=== PATIENT | female | born 1955 | race Caucasian/White ===

== ENCOUNTER → 2019-04-30 13:12 | Outpatient (CLI) | payer OTHER, SELFPAY ==
[2019-04-30 14:32] LABS: Add Manual Diff / Slide Review NO; Basophils Absolute Auto 100 /uL (0-100); Basophils Percent Auto 0.8 % (0-2); Eosinophils Absolute Auto 300 /uL (0-450); Eosinophils Percent Auto 3.7 % (2-4); Hematocrit 41.7 % (36-46); Hemoglobin 14.2 g/dL (12.0-16.0); Lymphocytes Absolute Auto 1500 /uL (1100-4500); Lymphocytes Percent Auto 21.2 % (25-40); Mean Corpuscular Hemoglobin 27.8 PG (26-34); Mean Corpuscular Volume 81.8 fL (80-100); Monocytes Absolute Auto 400 /uL (0-900); Monocytes Percent Auto 4.8 % (3-14); Neutrophils Absolute Auto 5000 /uL (1500-7000); Neutrophils Percent Auto 69.5 % (50-75); Platelet Count 361 X10^3/uL (150-400); Red Cell Distribution Width 13.3 % (11.6-14.8); White Blood Cell Count 7.2 X10^3/uL (4.5-11.0)
[2019-04-30 14:51] LABS: Alanine Aminotransferase 17 IU/L (<35); Albumin 4.1 g/dL (3.5-5.0); Albumin Globulin Ratio 1.2 (1.0-2.8); Alkaline Phosphatase 90 U/L (38-126); Aspartate Aminotransferase 20 IU/L (14-36); Bilirubin Total 0.5 mg/dL (0.2-1.3); Blood Urea Nitrogen 21 mg/dL (7-17); Calcium 9.6 mg/dL (8.4-10.2); Carbon Dioxide 21 mmol/L (22-32); Chloride 105 mmol/L (98-107); Cholesterol 164 mg/dL (140-199); Estimated Glomerular Filt Rate > 60.0 mL/min (>60); Globulin 3.3 g/dL (1.7-4.1); Glucose 279 mg/dL (80-110); HDL Cholesterol 39 mg/dL (40-60); HEMOLYSIS < 15 (0-50); LDL Cholesterol Calculated 97 mg/dL (<100); Potassium 4.3 mmol/L (3.4-5.1); Sodium 137 mmol/L (137-145); Total Protein 7.4 g/dL (6.3-8.2); Triglycerides 139 mg/dL (35-150)
[2019-04-30 15:57] LABS: T4 Total Thyroxine 7.08 ug/dL (5.5-11.0)
[2019-04-30 16:05] LABS: Hemoglobin A1C% w Est Avg Glu 11.1 % (4.0-6.0)
[2019-04-30 16:10] LABS: Thyroid Stimulating Hormone 5.82 uIU/mL (0.47-4.68)
[2019-04-30 19:12] LABS: Appearance Urine UA CLEAR; Bilirubin Urine UA NEGATIVE (NEGATIVE); Color Urine UA YELLOW; Glucose Urine UA 1+ g/dL (Negative); Ketones Urine UA NEGATIVE (NEGATIVE); Leukocyte Esterase Urine UA NEGATIVE (NEGATIVE); Nitrite Urine UA NEGATIVE (Negative); Occult Blood Urine UA NEGATIVE (Negative); Protein Urine UA NEGATIVE (Negative); Specific Gravity Urine UA 1.015 (1.000-1.035); Urobilinogen Urine UA 0.2 E.U./dL (0.2)
[2019-04-30 19:58] LABS: Creatinine Urine Random 95.4 mg/dL
[2019-04-30 20:03] LABS: Microalbumi Creatinin Ratio Ur 10.4 ug/mg CR (<30)
== END ==
PROVIDERS: PCP Nurse Practitioner; Visit Provider Nurse Practitioner
DX: Z13.220 Encounter for screening for lipoid disorders (principal); Z13.29 Encounter for screening for other suspected endocrine disorder; Z13.6 Encounter for screening for cardiovascular disorders; E11.69 Type 2 diabetes mellitus with other specified complication; E66.01 Morbid (severe) obesity due to excess calories; E66.9 Obesity, unspecified; Z68.42 Body mass index [BMI] 45.0-49.9, adult
CPT/HCPCS: 36415; 80053; 80061; 81003; 82043; 82570; 83036; 84436; 84443; 84481; 85025

== ENCOUNTER 2019-05-02 21:33 | Emergency (ER) | payer OTHER, SELFPAY ==
[2019-05-02 21:57] VITALS: BP 126/54; PULSE 92; RESP 16; TEMP 36.8; O2SAT 96; BMI 47.6
--- NOTE | 2019-05-02 23:15 | ED_ITS ---
HPI - Extremity Injury (Lower) General Chief Complaint: Extremity Injury, Lower Stated Complaint: right hip pain Time Seen by Provider: 05/02/19 23:13 Source: patient and family (daughter) Mode of arrival: Family Vehicle Limitations: no limitations History of Present Illness HPI Narrative: This is a 63-year-old female who comes to the emergency department with complaint of right hip pain patient states that she have tweaked it on Saturday but she doesn't recall really hurting it. Didn't really start hurting till today got quite intense improved somewhat now. She did take some Tylenol at home which may have been helpful. Patient states that she has chronic neuropathy in her feet secondary to a significant injury to her right knee and lower extremity, she states she had a fracture because her leg to be b ent at a 90 degree angle, she had tear of all the ligaments in her knee as well as vascular injury. Patient knows little bit of bruising in her foot. The pain is all sort of in the hip joint region and buttock. She states that it does not radiate down the leg. She has not had any new loss of bowel or bladder control. She has not any fevers or chills. She hasn't had any new redness or skin ch anges to the skin. Patient does typically use a cane and a wheelchair intermittently and today has been relying mostly on her wheelchair. Related Data Home Medications Medication Instructions Recorded Confirmed ibuprofen 800 mg PO QDAY #0 11/28/10 04/30/19 amlodipine 5 mg tablet 5 mg PO DAILY tab 02/06/19 04/30/19 glimepiride 4 mg tablet 4 mg PO BID tab 02/06/19 04/30/19 Previous Rx's Medication Instructions Recorded Calcium Carbonate/Vitamin D 1 tab PO BID #180 09/21/10 (#CALCIUM 500 W/VITAMIN D 500 MG-125 IU) EPINEPHRINE (#EPI EZ PEN) 1 mg IM PRN #1 09/21/10 levothyroxine [Synthroid] 50 mcg PO QDAY #90 07/15/12 metformin [Glucophage] 1,000 mg PO BIDCC #180 07/15/12 ondansetron HCl [Zofran] 4 mg PO Q4HP #30 07/22/12 epinephrine 0.3 mg IM SEE INSTRUCTIONS #2 ea 08/04/12 atorvastatin 20 mg tablet 20 mg PO DAILY #90 tab 02/06/19 blood-glucose meter #1 each 04/17/19 one touch glucometer #1 ea 04/17/19 one touch glucose test strips #100 each 04/17/19 one touch lancets #100 each 04/17/19 meloxicam [Mobic] 7.5 mg PO BID PRN #14 tab 05/03/19 Allergies Allergy/AdvReac Type Severity Reaction Status Date / Time Codeine Allergy Unknown NAUSEA Uncoded 04/30/19 14:31 Erythromycin Allergy Unknown NAUSEA Uncoded 04/30/19 14:31 Penicillin Allergy Unknown HIVES/ASPHY Uncoded 04/30/19 14:31 VANIA Tetracycline Allergy Unknown HIVES Uncoded 04/30/19 14:31 Review of Systems Review of Systems ROS Unobtainable: All systems reviewed & are unremarkable except as noted in HPI and below Patient History Medical History Depression (Acute) FH: JOCELIN-BSO (total abdominal hysterectomy and bilateral salpingo-oophorectomy) (Acute) Fibromyalgia (Acute ~1994) Hypertension (Acute) Irritable bowel syndrome (Acute) Rash (Acute ~2017) Right leg paresthesias (Acute) Surgical History History of tonsillectomy (Acute) Family History (Updated 02/12/19 @ 08:50 by Audrey Le CMA) Father No problems noted. Mother No problems noted. Brother No problems noted. Grandfather Lung cancer Grandmother Cancer Social History marital status: pets and animals: Yes education level: other occupational status: employed [employer]: [employer] travel history: other seatbelt use: always water heater temp set < 120 deg: Yes working smoke detector in home: Yes fire extinguisher in home: Yes carbon monox detector in home: Yes firearms in home: No do you feel safe at home: Yes Smoking Status: Never smoker alcohol intake: current substance use type: painkillers during the past year weight has: remained stable well-balanced diet: daily or most days daily servings fruits/ve-1 caffeine: Yes (1-2 drinks per day; rare on soda/pop) eating out: 1-3 times/week Smoking Status: Never smoker Substance Use Type: does not use Exam Narrative Exam Narrative: GENERAL: Alert and oriented x three, obese female in mild distress. Patient is sitting in her wheelchair but was able to stand with some assistance from her daughter and transfer to the bed HEENT: Head normocephalic, atraumatic, EOMI, pupils reactive, face symmetric, moist mucous membranes NECK: Supple, full range of motion CARDIOVASCULAR: Regular rate and rhythm without murmurs, rubs or gallops. RESPIRATORY: Breath sounds equal bilaterally, no wheezes rales or rhonchi. ABDOMEN: Soft, nontender. Normoactive bowel sounds all 4 quadrants. No guarding or rebound, rigidity, no mass : No CVA tenderness BACK: No cervical, thoracic or lumbar vertebral point tenderness. Patient has normal range of motion. Patient's gait is antalgic. EXTREMITIES: Mildly decreased range of motion of the right hip. Patient has mild tenderness over the right SI and hip region. No tenderness in the femur, knee or lower leg. No swelling and right versus left lower extremity. No erythema, no cyanosis or pallor, no clubbing or edema. Neurovascularly intact. 2+ pulses and dorsalis pedis on the right. No rash or skin changes, patient does have incisions consistent with multiple past orthopedic surgeries on her right lower extremity NEUROLOGICAL: Cranial nerves II through XII grossly intact. Moving all extremities SKIN: Warm, dry, no petechiae, no rashes or lesions. Initial Vital Signs Initial Vital Signs: Vital Signs Temperature 98.3 F 05/02/19 21:57 Pulse Rate 92 H 05/02/19 21:57 Respiratory Rate 16 05/02/19 21:57 Blood Pressure 126/54 L 05/02/19 21:57 Pulse Oximetry 96 05/02/19 21:57 Course Orders Ordered: ED Orders 05/02/19 23:37 XR hip w pel if done RT 2V Stat Discontinued Medications Ketorolac Tromethamine (Toradol) 30 mg IM NOW ONE Stop: 05/02/19 23:38 Last Admin: 05/02/19 23:52 Dose: 30 mg Documented by: PREEIT Vital Signs Vital signs: Vital Signs - 8 hr 05/03/19 02:07 Pulse Rate 95 H Respiratory Rate 15 Blood Pressure 105/57 L Pulse Oximetry 98 MDM - Extremity Injury (Lower) Imaging Data right hip xray: My impression: nap, no fx, normal alignment. MDM Narrative Medical decision making narrative: Patient is feeling more comfortable after Toradol. Discussed x-ray findings. Plan for DC home with follow-up with primary care or orthopedic surgery if she prefers. Patient is comfortable with plan. Able to get around with some assistance from daughter but feels safe to return home. Discharge Plan Departure Patient Disposition: Home Clinical Impression: Hip pain, right Discharge Date/Time: 05/03/19 02:08 Instructions: DI for Hip Pain Activity Restrictions/Additional Instructions: Follow up this week with your physician for recheck and further evaluation as needed. Included is also an orthopedic referral if you would prefer. Take medication as prescribed, you may take this medication every 12 hours. You may take Tylenol with this medication. Do not take NSAIDs, ibuprofen, naproxen or Aleve with this medication. Return to the ER for fevers greater 100.4 F, weakness, new numbness, loss of sensation, loss of bowel or bladder control, rapidly worsening pain, redness or swelling of the hip lower extremity, pallor or cyanosis or other new or concerning symptoms. Prescriptions: New meloxicam [Mobic] 7.5 mg tablet 7.5 mg PO BID PRN (Reason: pain) Qty: 14 RF: 0 No Action Calcium Carbonate/Vitamin D (#CALCIUM 500 W/VITAMIN D 500 MG-125 IU) 1 tab PO BID Qty: 180 RF: 3 EPINEPHRINE (#EPI EZ PEN) 1 mg IM PRN Qty: 1 RF: 3 ibuprofen 800 MG tablet 800 mg PO QDAY Qty: 0 RF: 0 levothyroxine [Synthroid] 50 MCG tablet 50 mcg PO QDAY Qty: 90 RF: 3 metformin [Glucophage] 1,000 MG tablet 1,000 mg PO BIDCC Qty: 180 RF: 3 ondansetron HCl [Zofran] 4 MG tablet 4 mg PO Q4HP Qty: 30 RF: 0 epinephrine 0.3 MG/0.3 ML auto-injector 0.3 mg IM SEE INSTRUCTIONS Qty: 2 RF: 0 (DME) blood-glucose meter Kit See Rx Instructions .ROUTE .MEDSUPPLY Qty: 1 RF: 0 (DME) one touch glucometer Qty: 1 RF: 0 (DME) one touch glucose test strips Qty: 100 RF: 0 (DME) one touch lancets Qty: 100 RF: 0 amlodipine 5 mg tablet 5 mg PO DAILY RF: 0 glimepiride 4 mg tablet 4 mg PO BID RF: 0 atorvastatin 20 mg tablet 20 mg PO DAILY Qty: 90 RF: 3 Referrals: Emperatriz Mandel ARNP [Primary Care Provider] - Enmanuel Cantrell MD [Physician] -
--- NOTE | 2019-05-02 23:37 | DI.RAD.S_ITS ---
PROCEDURE: XR HIP W PEL IF DONE RT 2V INDICATIONS: right hip pain TECHNIQUE: AP pelvis with lateral view of the right hip. COMPARISON: None. FINDINGS: Bones: No displaced fractures or dislocations. There is mild axial joint space narrowing in the hips bilaterally. Mild subchondral sclerosis demonstrated along the superior acetabular rim. Pelvic ring appears intact. No suspicious bony lesions. Soft tissues: The visualized bowel gas pattern is normal. No suspicious soft tissue calcifications. IMPRESSION: 1. Mild degenerative changes in the hips. 2. No displaced fracture or dislocation. Dictated by: Sathish Jesus M.D. on 05/03/2019 at 8:40 Approved by: Sathish Jesus M.D. on 05/03/2019 at 8:41
[2019-05-02] MEDS: KETOROLAC 60 MG/2 ML VIAL 30 MG IM (23:52)
[2019-05-03 02:07] VITALS: BP 105/57; PULSE 95; RESP 15; O2SAT 98
== END 2019-05-03 02:08 | disposition home or self-care (01) ==
PROVIDERS: Emergency Provider Emergency Medicine; PCP Nurse Practitioner
DX: M25.551 Pain in right hip (principal)
CPT/HCPCS: 73502; 96372; 99283; J1885

== ENCOUNTER 2019-06-14 17:49 | Emergency (ER) | payer OTHER, SELFPAY ==
[2019-06-14 18:08] VITALS: BP 137/89; PULSE 108; RESP 20; TEMP 36.7; O2SAT 94
--- NOTE | 2019-06-14 18:47 | ED_ITS ---
HPI - Dental/Oral <Alexandra Rayo, [employer] - Last Filed: 06/14/19 20:17> General Chief complaint: Dental/Oral Stated complaint: facial/oral swelling after tooth extraction Time Seen by Provider: 06/14/19 18:24 Source: patient and family Mode of arrival: Ambulatory Limitations: no limitations History of Present Illness HPI Narrative: The patient is a 63-year-old female nonsmoker with history of morbid obesity, diabetes, hypertension of pain and swelling after a dental procedure. She states that she had pain and swelling around her right lower front tooth for several days, then she had her to teeth removed on Saturday. She was started on Keflex 500 mg 4 times a day. She presents with persistent pain and swelling. She denies any fevers nausea vomiting or diarrhea. She denies any systemic symptoms she states that she was given Keflex because she is ?allergic to absolutely everything else. She states that she is allergic to tetracyclines, penicillin, erythromycin and codeine. She is taking 500 mg of Keflex twice a day Related Data Home Medications Medication Instructions Recorded Confirmed ibuprofen 800 mg PO QDAY #0 11/28/10 04/30/19 amlodipine 5 mg tablet 5 mg PO DAILY tab 02/06/19 04/30/19 glimepiride 4 mg tablet 4 mg PO BID tab 02/06/19 04/30/19 Previous Rx's Medication Instructions Recorded Calcium Carbonate/Vitamin D 1 tab PO BID #180 09/21/10 (#CALCIUM 500 W/VITAMIN D 500 MG-125 IU) EPINEPHRINE (#EPI EZ PEN) 1 mg IM PRN #1 09/21/10 levothyroxine [Synthroid] 50 mcg PO QDAY #90 07/15/12 metformin [Glucophage] 1,000 mg PO BIDCC #180 07/15/12 ondansetron HCl [Zofran] 4 mg PO Q4HP #30 07/22/12 epinephrine 0.3 mg IM SEE INSTRUCTIONS #2 ea 08/04/12 atorvastatin 20 mg tablet 20 mg PO DAILY #90 tab 02/06/19 blood-glucose meter #1 each 04/17/19 one touch glucometer #1 ea 04/17/19 one touch glucose test strips #100 each 04/17/19 one touch lancets #100 each 04/17/19 meloxicam [Mobic] 7.5 mg PO BID PRN #14 tab 05/03/19 cephalexin 500 mg PO QID 7 Days #28 cap 06/14/19 Allergies Allergy/AdvReac Type Severity Reaction Status Date / Time Codeine Allergy Unknown NAUSEA Uncoded 04/30/19 14:31 Erythromycin Allergy Unknown NAUSEA Uncoded 04/30/19 14:31 Penicillin Allergy Unknown HIVES/ASPHY Uncoded 04/30/19 14:31 VANIA Tetracycline Allergy Unknown HIVES Uncoded 04/30/19 14:31 Review of Systems <DEN Evans - Last Filed: 06/14/19 20:17> Review of Systems Narrative: GENERAL: Denies chills, fatigue, malaise, fever, sweats. HEENT: See HPI RESPIRATORY: Denies dyspnea, cough, wheezing, hemoptysis, sputum. CARDIOVASCULAR: Denies chest pain, palpitations, orthopnea, edema, GASTROINTESTINAL: Denies nausea, vomiting, abdominal pain, diarrhea, constipatio n, melena. : Denies dysuria, frequency, incontinence, hematuria, urinary retention. MUSCULOSKELETAL: denies weakness, joint pain, or bony pain SKIN: Denies rash, skin lesions, or other NEUROLOGIC: Denies weakness, headache, numbness, change in speech, confusion, seizures, incoordination. PSYCHIATRIC: No concerning psychosocial issues. 12 point review of systems is negative except for those stated above Patient History <DEN Evans - Last Filed: 06/14/19 20:17> Medical History Depression (Acute) FH: JOCELIN-BSO (total abdominal hysterectomy and bilateral salpingo-oophorectomy) (Acute) Fibromyalgia (Acute ~1994) Hypertension (Acute) Irritable bowel syndrome (Acute) Rash (Acute ~2017) Right leg paresthesias (Acute) Surgical History History of tonsillectomy (Acute) Family History Father No problems noted. Mother No problems noted. Brother No problems noted. Grandfather Lung cancer Grandmother Cancer Social History marital status: pets and animals: Yes education level: other occupational status: employed [employer]: [employer] travel history: other seatbelt use: always water heater temp set < 120 deg: Yes working smoke detector in home: Yes fire extinguisher in home: Yes carbon monox detector in home: Yes firearms in home: No do you feel safe at home: Yes Smoking Status: Never smoker alcohol intake: current substance use type: painkillers during the past year weight has: remained stable well-balanced diet: daily or most days daily servings fruits/ve-1 caffeine: Yes (1-2 drinks per day; rare on soda/pop) eating out: 1-3 times/week Smoking Status: Never smoker alcohol intake frequency: holidays/special occasions only Substance Use Type: does not use Exam <DEN Evans - Last Filed: 06/14/19 20:17> Narrative Exam Narrative: GENERAL: This is a well-nourished, well-developed patient, in no acute distress HEAD: Atraumatic. Normocephalic. No temporal or scalp tenderness. EYES: Pupils equal round and reactive. Extraocular motions intact. No scleral icterus. No injection or drainage. ENT: Nose without bleeding, purulent drainage or septal hematoma. Throat without erythema, tonsillar hypertrophy or exudate. Uvula midline. Airway patent. Poor dentition noted, with tooth extraction sites right lower NECK: Trachea midline. No JVD or lymphadenopathy. Supple, nontender, no meningeal signs. CARDIOVASCULAR: Regular rate and rhythm RESPIRATORY: No cough. No increased respiratory effort. No accessory muscle use. EXTREMITIES: No clubbing, cyanosis, or edema. No joint tenderness, effusion, or edema noted. BACK: Nontender without deformity or crepitance. No flank tenderness. NEURO: AOx3. SKIN: Slight following on cheek noted exterior to do the extraction site, no erythema or warmth. Slight swelling is noted distal to right-sided jaw Initial Vital Signs Initial Vital Signs: Vital Signs Temperature 98.1 F 06/14/19 18:08 Pulse Rate 108 H 06/14/19 18:08 Respiratory Rate 20 06/14/19 18:08 Blood Pressure 137/89 06/14/19 18:08 Pulse Oximetry 94 06/14/19 18:08 <Magdy Mott DO - Last Filed: 06/14/19 20:18> Initial Vital Signs Initial Vital Signs: Vital Signs Temperature 98.1 F 06/14/19 18:08 Pulse Rate 108 H 06/14/19 18:08 Respiratory Rate 20 06/14/19 18:08 Blood Pressure 137/89 06/14/19 18:08 Pulse Oximetry 94 06/14/19 18:08 Course <DEN Evans - Last Filed: 06/14/19 20:17> Vital Signs Vital signs: Vital Signs - 8 hr 06/14/19 18:08 Temperature 98.1 F Pulse Rate 108 H Respiratory Rate 20 Blood Pressure 137/89 Pulse Oximetry 94 <Magdy Mott DO - Last Filed: 06/14/19 20:18> Vital Signs Vital signs: Vital Signs - 8 hr 06/14/19 18:08 Temperature 98.1 F Pulse Rate 108 H Respiratory Rate 20 Blood Pressure 137/89 Pulse Oximetry 94 MDM - Dental/Oral <DEN Evans - Last Filed: 06/14/19 20:17> MDM Narrative Medical decision making narrative: The patient is a 63-year-old female who presents with a chief complaint of swelling after tooth extraction. It is likely some of the swelling that she notes is normal due to her recent procedure, the effects of gravity on swelling. She has no signs of systemic illness, is afebrile in the emergency department. This she does have a history of C diff, so she would like to avoid clindamycin. I discussed increasing her Keflex dosing which she is okay with. I discussed at length use of ice, which she states she has not been doing much off. Encouraged follow-up with primary care provider as well as her dentist. Patient has no questions or concerns upon discharge and states understanding of return precautions as well as follow-up care Discharge Plan Departure Patient Disposition: Home Clinical Impression: Dental infection Discharge Date/Time: 06/14/19 19:42 Instructions: Tooth Abscess, DI for Dental Pain Activity Restrictions/Additional Instructions: As discussed we elected to increase your cephalexin dosing rather than trying another antibiotic in order to avoid risk of c diff Please follow-up with primary care provider as well as your dental provider Please continue to monitor for fevers vomiting etcetera and come back to the emergency department for any acute concerns Please take the antibiotic with probiotic Prescriptions: New cephalexin 500 mg capsule 500 mg PO QID 7 Days Qty: 28 RF: 0 No Action Calcium Carbonate/Vitamin D (#CALCIUM 500 W/VITAMIN D 500 MG-125 IU) 1 tab PO BID Qty: 180 RF: 3 EPINEPHRINE (#EPI EZ PEN) 1 mg IM PRN Qty: 1 RF: 3 ibuprofen 800 MG tablet 800 mg PO QDAY Qty: 0 RF: 0 levothyroxine [Synthroid] 50 MCG tablet 50 mcg PO QDAY Qty: 90 RF: 3 metformin [Glucophage] 1,000 MG tablet 1,000 mg PO BIDCC Qty: 180 RF: 3 ondansetron HCl [Zofran] 4 MG tablet 4 mg PO Q4HP Qty: 30 RF: 0 epinephrine 0.3 MG/0.3 ML auto-injector 0.3 mg IM SEE INSTRUCTIONS Qty: 2 RF: 0 (DME) blood-glucose meter Kit See Rx Instructions .ROUTE .MEDSUPPLY Qty: 1 RF: 0 (DME) one touch glucometer Qty: 1 RF: 0 (DME) one touch glucose test strips Qty: 100 RF: 0 (DME) one touch lancets Qty: 100 RF: 0 amlodipine 5 mg tablet 5 mg PO DAILY RF: 0 glimepiride 4 mg tablet 4 mg PO BID RF: 0 atorvastatin 20 mg tablet 20 mg PO DAILY Qty: 90 RF: 3 meloxicam [Mobic] 7.5 mg tablet 7.5 mg PO BID PRN (Reason: pain) Qty: 14 RF: 0 Referrals: Emperatriz Mandel ARNP [Primary Care Provider] - <Magdy Mott DO - Last Filed: 06/14/19 20:18> Sign Out Provider Sign Out Attestation: Dr Mott Co-Sign Statement: I was available for consultation during this patient's emergency department visit. This chart is signed by myself for administrative purposes only. I did not have direct contact with this patient during this visit. They were seen independently by the APC.
== END 2019-06-14 19:42 | disposition home or self-care (01) ==
PROVIDERS: Emergency Provider Nurse Practitioner Family; PCP Nurse Practitioner
DX: K04.7 Periapical abscess without sinus (principal)
CPT/HCPCS: 99281; 99283

== ENCOUNTER → 2019-12-17 12:55 | Outpatient (CLI) | payer OTHER, SELFPAY ==
[2019-12-17 13:51] LABS: Alanine Aminotransferase 21 IU/L (<35); Albumin 3.9 g/dL (3.5-5.0); Albumin Globulin Ratio 1.2 (1.0-2.8); Alkaline Phosphatase 113 U/L (38-126); Aspartate Aminotransferase 23 IU/L (14-36); BUN Creatinine Ratio 21.7 (6-22); Bilirubin Total 0.6 mg/dL (0.2-1.3); Blood Urea Nitrogen 15 mg/dL (7-17); Calcium 9.4 mg/dL (8.4-10.2); Carbon Dioxide 23 mmol/L (22-32); Chloride 100 mmol/L (98-107); Estimated Glomerular Filt Rate > 60.0 mL/min (>60); Globulin 3.3 g/dL (1.7-4.1); Glucose 310 mg/dL (80-110); HEMOLYSIS < 15 (0-50); Potassium 4.1 mmol/L (3.4-5.1); Sodium 135 mmol/L (137-145); Total Protein 7.2 g/dL (6.3-8.2)
[2019-12-17 14:09] LABS: Free T4, Direct Thyroxine 0.87 ng/dL (0.78-2.19)
[2019-12-17 14:24] LABS: Thyroid Stimulating Hormone 6.56 uIU/mL (0.47-4.68)
[2019-12-18 15:26] LABS: Cholesterol 160 mg/dL (140-199); HDL Cholesterol 40 mg/dL (40-60); LDL Cholesterol Calculated 87 mg/dL (<100); Triglycerides 165 mg/dL (35-150)
== END ==
PROVIDERS: PCP Nurse Practitioner; Referring Provider Nurse Practitioner; Visit Provider Nurse Practitioner
DX: E03.9 Hypothyroidism, unspecified (principal); E11.69 Type 2 diabetes mellitus with other specified complication; E66.01 Morbid (severe) obesity due to excess calories; E66.9 Obesity, unspecified; E78.5 Hyperlipidemia, unspecified; F32.9 Major depressive disorder, single episode, unspecified; G47.00 Insomnia, unspecified; I10 Essential (primary) hypertension; M17.10 Unilateral primary osteoarthritis, unspecified knee; Z68.42 Body mass index [BMI] 45.0-49.9, adult
CPT/HCPCS: 36415; 80053; 80061; 84439; 84443

== ENCOUNTER → 2019-12-18 16:49 | Outpatient (CLI) | payer OTHER, SELFPAY | PROVIDERS: PCP Nurse Practitioner; Referring Provider Nurse Practitioner; Visit Provider Nurse Practitioner | DX: E11.69 Type 2 diabetes mellitus with other specified complication (principal); E66.01 Morbid (severe) obesity due to excess calories; E66.9 Obesity, unspecified; Z68.42 Body mass index [BMI] 45.0-49.9, adult | CPT/HCPCS: 36415; 83036 ==

== ENCOUNTER → 2019-12-21 13:24 | Outpatient (CLI) | payer OTHER, SELFPAY ==
[2019-12-21 16:04] LABS: Creatinine Urine Random 79.7 mg/dL
[2019-12-21 16:07] LABS: Microalbumin Urine Random 0.8 mg/dL (0-1.6)
== END ==
PROVIDERS: PCP Nurse Practitioner; Referring Provider Nurse Practitioner; Visit Provider Nurse Practitioner
DX: E03.9 Hypothyroidism, unspecified (principal); E11.69 Type 2 diabetes mellitus with other specified complication; E66.01 Morbid (severe) obesity due to excess calories; E66.9 Obesity, unspecified; E78.5 Hyperlipidemia, unspecified; F32.9 Major depressive disorder, single episode, unspecified; G47.00 Insomnia, unspecified; I10 Essential (primary) hypertension; M17.10 Unilateral primary osteoarthritis, unspecified knee; Z68.42 Body mass index [BMI] 45.0-49.9, adult
CPT/HCPCS: 82043; 82570

== ENCOUNTER 2020-03-09 17:16 | Emergency (ER) | payer OTHER, SELFPAY ==
[2020-03-09 17:24] VITALS: BP 179/88; PULSE 91; RESP 13; TEMP 36.3; O2SAT 97; BMI 48.5
--- NOTE | 2020-03-09 17:25 | DI.RAD.S_ITS ---
PROCEDURE: XR HIP W PEL IF DONE RT 2V INDICATIONS: pain after fall TECHNIQUE: AP pelvis with lateral view(s) of the right hip(s). COMPARISON: [facility], , XR HIP W PEL IF DONE RT 2V, 05/03/2019, 1:02. FINDINGS: Bones: No fractures or dislocations. Pelvic ring appears intact. No suspicious bony lesions. Mild bilateral hip degenerative change. Soft tissues: The visualized bowel gas pattern is normal. No suspicious soft tissue calcifications. IMPRESSION: Mild bilateral hip degenerative change. No evidence acute bony abnormality of the pelvis and right hip. If clinical suspicion and/or symptoms persist, further assessment with repeat plain films, or advanced imaging (e.g., CT, MRI, or bone scan) may be helpful for further assessment. Dictated by: Peng Kohli M.D. on 03/09/2020 at 18:02 Approved by: Peng Kohli M.D. on 03/09/2020 at 18:04
--- NOTE | 2020-03-09 17:57 | ED_ITS ---
HPI - Extremity Problem General Chief complaint: Extremity Problem,Nontraumatic Stated complaint: Right Hip Gave Out Saturday, Getting Worse Time Seen by Provider: 03/09/20 17:23 Source: patient Mode of arrival: Wheelchair Limitations: no limitations History of Present Illness HPI Narrative: 64-year-old female here for evaluation of right hip pain. She states that on Saturday her right hip gave out on her. She does have chronic neurologic and muscular issues in her right lower extremity after a injury several years ago. She spends quite a bit of time in a motorized wheelchair. She also sits most of the day for her job. She can walk somewhat but does wear an ankle brace. Has been taking Advil at home. Related Data Home Medications Medication Instructions Recorded Confirmed ibuprofen 800 mg PO QDAY #0 11/28/10 04/30/19 Previous Rx's Medication Instructions Recorded EPINEPHRINE (#EPI EZ PEN) 1 mg IM PRN #1 09/21/10 blood-glucose meter #1 each 04/17/19 Contour Meter #1 ea 11/25/19 epinephrine 0.3 mg/0.3 mL 0.3 mg IM SEE INSTRUCTIONS #2 ea 12/25/19 injection, auto-injector amlodipine 5 mg tablet 5 mg PO DAILY #90 tab 01/07/20 atorvastatin 20 mg tablet 20 mg PO DAILY #90 tab 01/07/20 glimepiride 4 mg tablet 4 mg PO BID #180 tab 01/07/20 metformin 1,000 mg tablet 1,000 mg PO BIDCC #180 tab 01/07/20 pen needle, diabetic 31 gauge x #90 each 01/19/20/ insulin glargine 100 unit/mL (3 30 unit SUBCUT DAILY #15 ml 01/26/20 mL) subcutaneous pen Contour glucose test strips #200 each 02/10/20 Contour lancets #200 each 02/10/20 tramadol [Ultram] 50 mg PO Q4H PRN #7 tab 03/09/20 Allergies Allergy/AdvReac Type Severity Reaction Status Date / Time codeine Allergy Verified 03/09/20 17:44 erythromycin base Allergy Verified 03/09/20 17:44 nitrofurantoin Allergy Verified 03/09/20 17:44 Penicillins Allergy Verified 03/09/20 17:44 Tetracyclines Allergy Verified 03/09/20 17:44 Review of Systems Constitutional Constitutional: Denies fever(s) Musculoskeletal Comments: Right hip pain Integumentary/Breasts Skin/Breast: Denies rash Neurologic Neurologic: Denies behavioral changes Psychiatric Psychiatric: Denies behavioral changes Hematologic/Lymphatic Hematologic/Lymphatic: Denies easy bleeding and Denies easy bruising Patient History Medical History Adjustment disorder with depressed mood (Acute) Breast cancer screening (Acute) Chronic pain (Acute) Colon cancer screening (Acute) Depression (Acute) Dysphagia (Acute) FH: JOCELIN-BSO (total abdominal hysterectomy and bilateral salpingo-oophorectomy) (Acute) Fibromyalgia (Acute ~1994) Fibrositis (Acute) Foot drop (Acute) GERD (gastroesophageal reflux disease) (Acute) Hypertension (Acute) Hypothyroidism (Acute) Impaired mobility (Acute) Insomnia (Acute) Irritable bowel syndrome (Acute) Osteoarthritis of knee (Acute) Rash (Acute ~2017) Right leg paresthesias (Acute) Skin cancer screening (Acute) Vitamin D deficiency (Acute) Surgical History History of tonsillectomy (Acute) Family History Father No problems noted. Mother No problems noted. Brother No problems noted. Grandfather Lung cancer Grandmother Cancer Social History marital status: pets and animals: Yes education level: other occupational status: employed [employer]: [employer] travel history: other seatbelt use: always water heater temp set < 120 deg: Yes working smoke detector in home: Yes fire extinguisher in home: Yes carbon monox detector in home: Yes firearms in home: No do you feel safe at home: Yes Smoking Status: Never smoker alcohol intake: current substance use type: painkillers during the past year weight has: remained stable well-balanced diet: daily or most days daily servings fruits/ve-1 caffeine: Yes (1-2 drinks per day; rare on soda/pop) eating out: 1-3 times/week Smoking Status: Never smoker alcohol intake frequency: holidays/special occasions only Substance Use Type: does not use Exam Initial Vital Signs Initial Vital Signs: Vital Signs Temperature 97.4 F L 03/09/20 17:24 Pulse Rate 91 H 03/09/20 17:24 Respiratory Rate 13 03/09/20 17:24 Blood Pressure 179/88 H 03/09/20 17:24 Pulse Oximetry 97 03/09/20 17:24 Const General: cooperative and healthy appearing Skin Lesions: no lesions Rashes: no rashes Neuro General: patient alert, patient awake and patient oriented x3 Extrem Other: Note tenderness to palpation with internal and external rotation of the right hip does have tenderness palpation over the greater trochanter. Patient has chronic deformities to the right lower extremity below the knee. Psych Appearance: grossly normal and well kempt Course Orders Ordered: ED Orders 03/09/20 17:25 XR hip w pel if done RT 2V Stat Vital Signs Vital signs: Vital Signs - 8 hr 03/09/20 17:24 Temperature 97.4 F L Pulse Rate 91 H Respiratory Rate 13 Blood Pressure 179/88 H Pulse Oximetry 97 MDM - Extremity (Nontraumatic) Imaging Data Extremity x-ray #1: Radiologist's Impression: [address] [address] XRay Report Signed Patient: Heaven Keane [facility]#: [id number] : [id number]:[id number] Age/Sex: 64 / FDate of Service: 03/09/20 Loc: ED Accession Number: [id number] Procedure: XR hip w pel if done RT 2V Ordering Provider: Magdy Mott D.O. PROCEDURE: XR HIP W PEL IF DONE RT 2V INDICATIONS: pain after fall TECHNIQUE: AP pelvis with lateral view(s) of the right hip(s). COMPARISON: [facility] , XR HIP W PEL IF DONE RT 2V, 05/03/2019, 1:02. FINDINGS: Bones: No fractures or dislocations. Pelvic ring appears intact. No suspicious bony lesions. Mild bilateral hip degenerative change. Soft tissues: The visualized bowel gas pattern is normal. No suspicious soft tissue calcifications. IMPRESSION: Mild bilateral hip degenerative change. No evidence acute bony abnormality of the pelvis and right hip. If clinical suspicion and/or symptoms persist, further assessment with repeat plain films, or advanced imaging (e.g., CT, MRI, or bone scan) may be helpful for further assessment. Dictated by: Peng Kohli M.D. on 03/09/2020 at 18:02 Approved by: Peng Kohli M.D. on 03/09/2020 at 18:04 [facility] Narrative Medical decision making narrative: No fractures on the x-rays. She does have chronic neurologic issues to her right lower extremity. No indication for further x-rays. Suspect muscular issues. She is currently taking Advil. Cristian kinsey follow-up with her primary provider. Discharge Plan Departure Patient Disposition: Home Clinical Impression: Hip pain, right, Arthritis Instructions: DI for Arthritis Activity Restrictions/Additional Instructions: Recommend that you continue with the light stretching and heat and light stre tching. You can continue with the anti-inflammatories like we discussed. Contact your primary provider for follow-up. Return to the emergency department for any new or worsening symptoms Prescriptions: New tramadol [Ultram] 50 mg tablet 50 mg PO Q4H PRN (Reason: pain) Qty: 7 RF: 0 No Action EPINEPHRINE (#EPI EZ PEN) 1 mg IM PRN Qty: 1 RF: 3 ibuprofen 800 MG tablet 800 mg PO QDAY Qty: 0 RF: 0 (DME) blood-glucose meter Kit See Rx Instructions .ROUTE .MEDSUPPLY Qty: 1 RF: 0 (DME) Contour Meter Qty: 1 RF: 0 epinephrine 0.3 mg/0.3 mL auto-injector 0.3 mg IM SEE INSTRUCTIONS Qty: 2 RF: 0 amlodipine 5 mg tablet 5 mg PO DAILY Qty: 90 RF: 1 atorvastatin 20 mg tablet 20 mg PO DAILY Qty: 90 RF: 1 glimepiride 4 mg tablet 4 mg PO BID Qty: 180 RF: 1 metformin [Glucophage] 1,000 mg tablet 1,000 mg PO BIDCC Qty: 180 RF: 1 (DME) pen needle, diabetic [Lite Touch Insulin Pen Randolph] 31 gauge x 3/16 needle See Rx Instructions .ROUTE .MEDSUPPLY Qty: 90 RF: 3 insulin glargine 100 unit/mL (3 mL) insulin pen 30 unit SUBCUT DAILY Qty: 15 RF: 2 (DME) Contour glucose test strips Qty: 200 RF: 3 (DME) Contour lancets Qty: 200 RF: 3 Referrals: Emperatriz Mandel ARNP [Primary Care Provider] - Stand Alone Forms: Work Release Note
== END 2020-03-09 18:48 | disposition home or self-care (01) ==
PROVIDERS: Emergency Provider Emergency Medicine; PCP Nurse Practitioner
DX: M25.551 Pain in right hip (principal); W19.XXXA Unspecified fall, initial encounter; M19.90 Unspecified osteoarthritis, unspecified site
CPT/HCPCS: 73502; 99283

== ENCOUNTER → 2020-03-17 15:29 | Outpatient (CLI) | payer OTHER, SELFPAY ==
[2020-03-17 16:22] LABS: Hemoglobin A1C% w Est Avg Glu 8.4 % (4.0-6.0)
== END ==
PROVIDERS: PCP Nurse Practitioner; Referring Provider Family Medicine; Visit Provider Family Medicine
DX: E11.69 Type 2 diabetes mellitus with other specified complication (principal); E66.01 Morbid (severe) obesity due to excess calories; E66.9 Obesity, unspecified; Z68.42 Body mass index [BMI] 45.0-49.9, adult
CPT/HCPCS: 36415; 83036

== ENCOUNTER 2020-06-16 13:23 | Emergency (ER) | payer OTHER, SELFPAY ==
[2020-06-16 13:25] VITALS: BP 147/63; PULSE 81; RESP 20; TEMP 36.6; O2SAT 98; BMI 47.7
--- NOTE | 2020-06-16 14:31 | DI.RAD.S_ITS ---
PROCEDURE: XR ANKLE RT MIN 3V INDICATIONS: ankle pain/fall TECHNIQUE: 3 views of the ankle were acquired. COMPARISON: [facility], FOOT 3V RIGHT, 09/02/2010, 15:10. FINDINGS: Bones: No fractures or dislocations. Ankle mortise is normally aligned. No suspicious bony lesions. Small calcaneal enthesophytes. Bones appear osteopenic. Soft tissues: No tibiotalar joint effusion. Achilles tendon appears normal. Swelling at the lateral malleolus and midfoot. IMPRESSION: No discrete fracture is identified. Swelling at the lateral malleolus and midfoot. If clinically indicated consider follow-up radiographs in 10-14 days. Dictated by: José Miguel Lozano M.D. on 06/16/2020 at 14:55 Approved by: José Miguel Lozano M.D. on 06/16/2020 at 14:59
--- NOTE | 2020-06-16 14:39 | ED.FALL ---
HPI - Fall <Rossi Velez PA-C - Last Filed: 06/16/20 16:53> General Chief Complaint: Fall Stated Complaint: GLF, right ankle pain Time Seen by Provider: 06/16/20 14:07 Source: patient and EMS Mode of arrival: EMS History of Present Illness HPI Narrative: 64 yo patient BIBEMS morbidly obese Patient hx of diabetes, chronic pain, fibromyalgia, impaired mobility, right leg paresthesias states that she normally walks with 2 canes one in each arm and she was getting out of her car today and walking down to her house and she for some reason was only using 1 cane -- because she does not have feeling in her right leg below her knee she often trips over her right toes, this happened today and she went down twisting her ankle on the way landing on her belly and also scratching her nose. She says she normally does not have any feeling and cannot sense pain in her ankle and right now her ankle is in a great deal of pain. She denies numbness or tingling or any other symptoms. She says she did not lose consciousness, she does not have a headache, vision changes, neck pain abdominal pain, hip pain, flank pain, back pain or any other symptoms. MD complaint: fall Onset (ago): hour(s) (1) Fall from: standing Place fall occurred: home Loss of consciousness: none Prolonged down time: no Symptoms prior to fall: none Context: tripped/slipped Location of injury - extremities: Right: ankle Severity: severe Severity scale (1-10): 7 Related Data Home Medications Medication Instructions Recorded Confirmed ibuprofen 800 mg PO QDAY #0 11/28/10 03/18/20 Previous Rx's Medication Instructions Recorded EPINEPHRINE (#EPI EZ PEN) 1 mg IM PRN #1 09/21/10 blood-glucose meter #1 each 04/17/19 epinephrine 0.3 mg/0.3 mL 0.3 mg IM SEE INSTRUCTIONS #2 ea 12/25/19 injection, auto-injector pen needle, diabetic 31 gauge x #90 each 01/19/2008/02 tramadol [Ultram] 50 mg PO Q4H PRN #7 tab 03/09/20 glucometer and strips/One touch #1 ea 03/18/20 One Touch test strips #1 ea 03/31/20 one touch Lancets #1 ea 03/31/20 one touch glucometer #1 ea 03/31/20 gabapentin 100 mg capsule 100 mg PO BEDTIME #90 cap 05/23/20 insulin glargine 100 unit/mL (3 30 unit SUBCUT DAILY #15 ml 06/10/20 mL) subcutaneous pen amlodipine 5 mg tablet 5 mg PO DAILY #90 tab 06/13/20 atorvastatin 20 mg tablet 20 mg PO DAILY #90 tab 06/13/20 glimepiride 4 mg tablet 4 mg PO BID #180 tab 06/13/20 metformin 1,000 mg tablet 1,000 mg PO BIDCC #180 tab 06/13/20 ondansetron HCl [Zofran] 4 mg PO Q6H PRN #20 tab 06/16/20 tramadol [Ultram] 50 mg PO Q6H PRN #20 tab 06/16/20 Allergies Allergy/AdvReac Type Severity Reaction Status Date / Time codeine Allergy Verified 06/16/20 13:32 erythromycin base Allergy Verified 06/16/20 13:32 nitrofurantoin Allergy Verified 06/16/20 13:32 Penicillins Allergy Verified 06/16/20 13:32 Tetracyclines Allergy Verified 06/16/20 13:32 Review of Systems <Rossi Velez PA-C - Last Filed: 06/16/20 16:53> Review of Systems Narrative: GENERAL: Denies chills, fatigue, malaise, fever, sweats. HEENT: Denies sinus pain, ear pain, sore throat, difficulty swallowing, dizziness. RESPIRATORY: Denies dyspnea, cough, wheezing, hemoptysis, sputum. CARDIOVASCULAR: Denies chest pain, palpitations, orthopnea, edema, GASTROINTESTINAL: Denies nausea, vomiting, abdominal pain, diarrhea, constipation, melena. : Denies dysuria, frequency, incontinence, hematuria, urinary retention. MUSCULOSKELETAL: Endorses sore muscle tenderness in the back of her right shoulder in the muscles above her shoulder blade since her fall today, endorses significant pain and tenderness of her right ankle on the outside with associated swelling since her fall today denies weakness, joint pain, or bony pain SKIN: Denies rash, skin lesions, or other NEUROLOGIC: Denies weakness, headache, numbness, change in speech, confusion, seizures, incoordination. PSYCHIATRIC: No concerning psychosocial issues. 12 point review of systems is negative except for those stated above Patient History <Rossi Velez PA-C - Last Filed: 06/16/20 16:53> Medical History (Updated 06/16/20 @ 18:17 by Alexandra York DO) Adjustment disorder with depressed mood Back pain Bilateral hip pain Breast cancer screening Chronic pain Colon cancer screening Depression Dysphagia FH: JOCELIN-BSO (total abdominal hysterectomy and bilateral salpingo-oophorectomy) Fibromyalgia (~1994) Fibrositis Foot drop GERD (gastroesophageal reflux disease) Hypertension Hypothyroidism Impaired mobility Insomnia Irritable bowel syndrome Osteoarthritis of knee Rash (~2017) Right leg paresthesias Skin cancer screening Vitamin D deficiency Surgical History History of tonsillectomy Family History Father No problems noted. Mother No problems noted. Brother No problems noted. Grandfather Lung cancer Grandmother Cancer Social History marital status: pets and animals: Yes education level: other occupational status: employed umberto/jainism: Mormonism travel history: other seatbelt use: always water heater temp set < 120 deg: Yes working smoke detector in home: Yes fire extinguisher in home: Yes carbon monox detector in home: Yes firearms in home: No do you feel safe at home: Yes Smoking Status: Never smoker alcohol intake: current substance use type: painkillers during the past year weight has: remained stable well-balanced diet: daily or most days daily servings fruits/ve-1 caffeine: Yes (1-2 drinks per day; rare on soda/pop) eating out: 1-3 times/week Smoking Status: Never smoker alcohol intake frequency: holidays/special occasions only Substance Use Type: does not use Exam <Rossi Velez PA-C - Last Filed: 06/16/20 16:53> Narrative Exam Narrative: GENERAL: 64 year old morbidly obese patient appears younger than stated age. Well-nourished, well-developed patient, in mild distress. HEAD: Atraumatic. Normocephalic. EYES: Pupils equal round and reactive. Extraocular motions intact. No scleral icterus. No injection or drainage. ENT: Nose without bleeding, purulent drainage. There is a superficial abrasion over the mid bridge, nasal bones are intact without crepitus there is very mild tenderness over the superior nose Throat without erythema, tonsillar hypertrophy or exudate. Airway patent. No oral lesions or bleeding, patient is edentulous. NECK: Trachea midline. Non tender spinous processes and paraspinal muscles, normal range of motion pain-free. CARDIOVASCULAR: Regular rate and rhythm without murmurs, gallops, or rubs. RESPIRATORY: Clear to auscultation. Breath sounds equal bilaterally. No wheezes, rales, or rhonchi. GASTROINTESTINAL: Abdomen soft, non-tender, nondistended. EXTREMITIES: Scar medial on the right knee, very mild bruising of the superior anterior thibodeaux of the right leg without broken skin. The right foot is held inverted at the ankle with lateral bruising and swelling at in around the malleolus. She has significant tenderness over the ATFL and inferior to the lateral malleolus also with tenderness of the distal 4th metatarsal. Otherwise nontender range of motion is reduced 2nd to pain and historic immobility. No other edema or joint tenderness. BACK: Nontender without deformity or crepitance. No flank tenderness. NEURO: AOx3. Extraocular motions intact, pupils PERRLA, neurologically intact at her baseline SKIN: No rash or erythema of visible areas Initial Vital Signs Initial Vital Signs: Vital Signs Temperature 97.9 F 06/16/20 13:25 Pulse Rate 81 06/16/20 13:25 Respiratory Rate 20 06/16/20 13:25 Blood Pressure 147/63 H 06/16/20 13:25 Pulse Oximetry 98 06/16/20 13:25 <Alexandra York DO - Last Filed: 06/16/20 19:39> Initial Vital Signs Initial Vital Signs: Vital Signs Temperature 97.9 F 06/16/20 13:25 Pulse Rate 81 06/16/20 13:25 Respiratory Rate 20 06/16/20 13:25 Blood Pressure 147/63 H 06/16/20 13:25 Pulse Oximetry 98 06/16/20 13:25 Course <Rossi Velez PA-C - Last Filed: 06/16/20 16:53> Orders Ordered: ED Orders 06/16/20 14:31 XR ankle RT min 3V Stat 06/16/20 15:16 XR foot RT min 3V Stat 06/16/20 16:47 CT LE RT wo con Stat Discontinued Medications Acetaminophen (Acetaminophen 325 Mg Tablet) 650 mg PO NOW ONE Stop: 06/16/20 14:33 Last Admin: 06/16/20 14:47 Dose: Not Given Documented by: PREMA Acetaminophen (Acetaminophen 325 Mg Tablet) 975 mg PO NOW ONE Stop: 06/16/20 14:38 Last Admin: 06/16/20 14:46 Dose: 975 mg Documented by: PREMA Tramadol HCl (Tramadol 50 Mg Prepack) 1 bottle MISC SEEINSTR ONE Stop: 06/16/20 18:24 Last Admin: 06/16/20 18:39 Dose: 1 bottle Documented by: PREMA Vital Signs Vital signs: Vital Signs - 8 hr 06/16/20 13:25 06/16/20 18:10 Temperature 97.9 F Pulse Rate 81 85 Respiratory Rate 20 20 Blood Pressure 147/63 H 137/75 Pulse Oximetry 98 98 <Alexandra York, - Last Filed: 06/16/20 19:39> Orders Ordered: ED Orders 06/16/20 14:31 XR ankle RT min 3V Stat 06/16/20 15:16 XR foot RT min 3V Stat 06/16/20 16:47 CT LE RT wo con Stat Discontinued Medications Acetaminophen (Acetaminophen 325 Mg Tablet) 650 mg PO NOW ONE Stop: 06/16/20 14:33 Last Admin: 06/16/20 14:47 Dose: Not Given Documented by: PREMA Acetaminophen (Acetaminophen 325 Mg Tablet) 975 mg PO NOW ONE Stop: 06/16/20 14:38 Last Admin: 06/16/20 14:46 Dose: 975 mg Documented by: PREMA Tramadol HCl (Tramadol 50 Mg Prepack) 1 bottle MISC SEEINSTR ONE Stop: 06/16/20 18:24 Last Admin: 06/16/20 18:39 Dose: 1 bottle Documented by: PREMA Reevaluation(s) Reevaluation #1: Patient xray is concerning for possible calcaneal fracture. CT ordered. Patient updated on plan. Time: 16:48 Reevaluation #2: Reviewed CT findings and recommendation from Orthopedic surgery. Patient has multiple walkers at home. Elected to go with a walking boot. She is aware she is nonweightbearing. Patient has not done well with codeine or [place] in the past. She is unsure if she has had tramadol but would rather avoid oxycodone. 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 We discussed that Ultram still is addictive and has those qualities. Recommend she do Tylenol q.8 hours followed with Ultram for breakthrough pain. As well as conservative measures. Discussed recommendations from orthopedic surgery in that she needs follow-up for further evaluation. Time: 18:29 Consultations Consultation #1: Spoke with Dr. Peacock, he recommends follow-up with Dr. Muñoz. As per patient ask specifically for her as she has the foot and ankle specialist. He recommends nonweightbearing status and splint. Time: 18:15 Vital Signs Vital signs: Vital Signs - 8 hr 06/16/20 13:25 06/16/20 18:10 Temperature 97.9 F Pulse Rate 81 85 Respiratory Rate 20 20 Blood Pressure 147/63 H 137/75 Pulse Oximetry 98 98 MDM - Fall <Rossi Velez PA-C - Last Filed: 06/16/20 16:53> Differential Diagnosis Differential diagnosis: Likely other (Fall, head injury, fracture, sprain, strain, ) Medical Records Attestation: I reviewed the patient's medical records. Imaging Data Extremity x-ray #1: Attestation: I personally reviewed and interpreted this imaging study as follows: Radiologist's Impression: [address] [id number] ReportSigned Patient: Heaven Keane AMR#: [id number]: 7Acct:[id number]/Sex: 64 / FDate of Service: 06/16/20Loc: EDAccession Number: [id number] Procedure: XR ankle RT min 3V Ordering Provider: Rossi Velez P.A-C PROCEDURE: XR ANKLE RT MIN 3V INDICATIONS: ankle pain/fall TECHNIQUE: 3 views of the ankle were acquired. COMPARISON: [facility], FOOT 3V RIGHT, 09/02/2010, 15:10. FINDINGS: Bones: No fractures or dislocations. Ankle mortise is normally aligned. No suspicious bony lesions. Small calcaneal enthesophytes. Bones appear osteopenic. Soft tissues: No tibiotalar joint effusion. Achilles tendon appears normal. Swelling at the lateral malleolus and midfoot. IMPRESSION: No discrete fracture is identified. Swelling at the lateral malleolus and midfoot. If clinically indicated consider follow-up radiographs in 10-14 days. Dictated by: José Miguel Lozano M.D. on 06/16/2020 at 14:55 Approved by: José Miguel Lozano M.D. on 06/16/2020 at 14:59 Extremity x-ray #2: Attestation: I personally reviewed and interpreted this imaging study as follows: Radiologist's Impression: [address] [id number] ReportSigned Patient: Heaven Keane AMR#: [id number]: 7Acct:[id number]/Sex: 64 / FDate of Service: 06/16/20Loc: EDAccession Number: [id number] Procedure: XR foot RT min 3V Ordering Provider: Rossi Velez P.A-C PROCEDURE: XR FOOT RT MIN 3V INDICATIONS: fall, foot pain R distal 4thmetatarsal TECHNIQUE: 3 views of the foot were acquired. COMPARISON: [facility], CR, XR ANKLE RT MIN 3V, 06/16/2020, 14:34. [facility], CR, FOOT 3V RIGHT, 09/02/2010, 15:10. FINDINGS: Bones: Mild irregularity at the lateral calcaneus which appears new compared to the remote comparison. No fracture is identified in the region of the 4th metatarsal head at the site of pain. No dislocations. No suspicious bony lesions. Bones appear osteopenic. Prior fracture deformity of the distal 5th metatarsal. Soft tissues: No tibiotalar joint effusion. Achilles tendon appears normal. IMPRESSION: Suspect lateral calcaneus fracture with minimal displacement. -CT of the foot and ankle or calcaneal radiographs would be helpful for further evaluation. No fractures seen at the distal 4th metatarsal. Prior fracture deformity at the distal 5th metatarsal. Dictated by: José Miguel Lozano M.D. on 06/16/2020 at 15:47 Approved by: José Miguel Lozano M.D. on 06/16/2020 at 15:53 MDM Narrative Medical decision making narrative: Uncomfortable appearing 64-year-old obese woman with history of diabetes, right leg paresthesias, hypertension, reduced mobility presents complaining of a fall from standing today onto gravel with right ankle and foot pain. Ankle x-ray does not show evidence of fracture however foot x-ray does show a calcaneus fracture laterally that appears to be new. Patient also has significant swelling and bruising forming of her right lateral malleolus and the region inferior to this consistent with the area of the fracture. Patient also notably normally does not have pain sensation in her lower extremity on the right and she is having a great deal of pain today after her fall. No other injuries are noted on exam, no loss of consciousness, no neck pain, she does have a minor abrasion to her nose and very minor abrasions to the base of her palms. <Alexandra York, - Last Filed: 06/16/20 19:39> Imaging Data CT LE: Radiologist's Impression: [address] [id number] Scan ReportSigned Patient: Heaven Keane AMR#: [id number]: 7Acct:[id number]/Sex: 64 / FDate of Service: 06/16/20Loc: EDAccession Number: [id number] Procedure: CT LE RT wo con Ordering Provider: Alexandra York D.O. PROCEDURE: CT LE RT WO CON INDICATIONS: concern for calcaneal fracture TECHNIQUE: Noncontrast 1-1.5 mm axial sections acquired from above the tibiotalar joint to the bottom of the calcaneus, with coronal and sagittal reformats. COMPARISON: [facility], CR, FOOT 3V RIGHT, 09/02/2010, 15:10. [facility], CR, XR FOOT RT MIN 3V, 06/16/2020, 15:26. [facility], CR, XR ANKLE RT MIN 3V, 06/16/2020, 14:34. FINDINGS: Image quality: Excellent. Bones: Acute fracture of the inferior lateral calcaneus, (). There is mild displacement. Prior fracture deformity of the distal 5th metatarsal. Small calcaneal spurs. Moderate degenerative change. Soft tissues: Soft tissue swelling and edema and probable small hematoma in the lateral foot soft tissues near the fracture. IMPRESSION: Acute fracture of the inferior lateral calcaneus with mild displacement. Dictated by: José Miguel Lozano M.D. on 06/16/2020 at 17:37 Approved by: José Miguel Lozano M.D. on 06/16/2020 at 17:45 MDM Narrative Medical decision making narrative: This is a 64-year-old female who had a ground level fall. Low velocity mechanism. Patient did have a scrape on her forehead she denies other injuries besides pain in her foot currently. Patient denies blood thinners. Physical exam does not suggest that she needs further eval. She is sore overall. Patient had Tylenol in department. She was signed out to myself by Rosie. Patient's images were reviewed concern for calcaneal fracture. Patient's majority tenderness is in the metatarsal and toes. CT imaging was obtained does show a lateral calcaneal fracture with prior fractures in her foot but no other acute fractures. This was discussed with Orthopedic surgery with recommendations included above. These were discussed with the patient she is agreeable with plan. Discharge Plan Departure Patient Disposition: Home Clinical Impression: Calcaneal fracture Instructions: DI for Foot Fracture Activity Restrictions/Additional Instructions: Follow-up with Orthopedic surgery, call for an appointment tomorrow. Ask for a follow-up appointment with Dr. Zamudio for evaluation of her calcaneal fracture. You may let the electrician front know that I spoke with Dr. Peacock who recommended Dr. Zamudio specific. You should remain nonweightbearing until cleared by Orthopedic surgery. You may take Tylenol up to a 1000 mg every 8 hours as needed for pain. If this is inadequate you may take narcotic pain medication as prescribed Take medication as prescribed, this medication can make you sleepy do not drive, perform hazardous activities or make any major decisions while taking this medication. This medication will make you constipated, make sure you are drinking plenty of fluids and take a stool softener once daily until soft regular stools. Take antinausea medication 20 minutes prior to narcotic pain medication if it makes you nauseated. You may take this medication 1 tablet every 6 hours as needed for nausea. Splint Care: Keep splint clean and dry. Elevated affected body part to decrease swelling. OK to use ice pack on the affected body part. Use for 15-20 minutes each time, for 5-6x per day. If you develop worsening pain, numbness, tingling, discoloration of the affected body part, loosen the splint by loosening the CHERYL wrap, and either see your doctor for an urgent re-assessment, or return to the Emergency Department. Return to the Emergency Department for any new or worsening symptoms. Prescriptions: New tramadol [Ultram] 50 mg tablet 50 mg PO Q6H PRN (Reason: pain) Qty: 20 RF: 0 ondansetron HCl [Zofran] 4 mg tablet 4 mg PO Q6H PRN (Reason: nausea and vomiting) Qty: 20 RF: 0 No Action EPINEPHRINE (#EPI EZ PEN) 1 mg IM PRN Qty: 1 RF: 3 ibuprofen 800 MG tablet 800 mg PO QDAY Qty: 0 RF: 0 (DME) blood-glucose meter Kit See Rx Instructions .ROUTE .MEDSUPPLY Qty: 1 RF: 0 epinephrine 0.3 mg/0.3 mL auto-injector 0.3 mg IM SEE INSTRUCTIONS Qty: 2 RF: 0 (DME) pen needle, diabetic [Lite Touch Insulin Pen [place]] 31 gauge x 3/16 needle See Rx Instructions .ROUTE .MEDSUPPLY Qty: 90 RF: 3 gabapentin 100 mg capsule 100 mg PO BEDTIME Qty: 90 RF: 0 insulin glargine 100 unit/mL (3 mL) insulin pen 30 unit SUBCUT DAILY Qty: 15 RF: 2 metformin [Glucophage] 1,000 mg tablet 1,000 mg PO BIDCC Qty: 180 RF: 1 atorvastatin 20 mg tablet 20 mg PO DAILY Qty: 90 RF: 1 amlodipine 5 mg tablet 5 mg PO DAILY Qty: 90 RF: 1 glimepiride 4 mg tablet 4 mg PO BID Qty: 180 RF: 1 (DME) glucometer and strips/One touch Qty: 1 RF: 0 (DME) one touch glucometer Qty: 1 RF: 0 (DME) one touch Lancets Qty: 1 RF: 3 (DME) One Touch test strips Qty: 1 RF: 3 tramadol [Ultram] 50 mg tablet 50 mg PO Q4H PRN (Reason: pain) Qty: 7 RF: 0 Referrals: Emperatriz Mandel ARNP [Primary Care Provider] - Kendra Zamudio MD [Physician] - Stand Alone Forms: Work Release Note
[2020-06-16] MEDS: ACETAMINOPHEN 325 MG TABLET 975 MG PO (14:46)
--- NOTE | 2020-06-16 15:16 | DI.RAD.S_ITS ---
PROCEDURE: XR FOOT RT MIN 3V INDICATIONS: fall, foot pain R distal 4thmetatarsal TECHNIQUE: 3 views of the foot were acquired. COMPARISON: [facility], CR, XR ANKLE RT MIN 3V, 06/16/2020, 14:34. [facility], CR, FOOT 3V RIGHT, 09/02/2010, 15:10. FINDINGS: Bones: Mild irregularity at the lateral calcaneus which appears new compared to the remote comparison. No fracture is identified in the region of the 4th metatarsal head at the site of pain. No dislocations. No suspicious bony lesions. Bones appear osteopenic. Prior fracture deformity of the distal 5th metatarsal. Soft tissues: No tibiotalar joint effusion. Achilles tendon appears normal. IMPRESSION: Suspect lateral calcaneus fracture with minimal displacement. -CT of the foot and ankle or calcaneal radiographs would be helpful for further evaluation. No fractures seen at the distal 4th metatarsal. Prior fracture deformity at the distal 5th metatarsal. Dictated by: José Miguel Lozano M.D. on 06/16/2020 at 15:47 Approved by: José Miguel Lozano M.D. on 06/16/2020 at 15:53
--- NOTE | 2020-06-16 16:47 | DI.CT.S_ITS ---
PROCEDURE: CT LE RT WO CON INDICATIONS: concern for calcaneal fracture TECHNIQUE: Noncontrast 1-1.5 mm axial sections acquired from above the tibiotalar joint to the bottom of the calcaneus, with coronal and sagittal reformats. COMPARISON: [facility], CR, FOOT 3V RIGHT, 09/02/2010, 15:10. [facility], CR, XR FOOT RT MIN 3V, 06/16/2020, 15:26. [facility], CR, XR ANKLE RT MIN 3V, 06/16/2020, 14:34. FINDINGS: Image quality: Excellent. Bones: Acute fracture of the inferior lateral calcaneus, (). There is mild displacement. Prior fracture deformity of the distal 5th metatarsal. Small calcaneal spurs. Moderate degenerative change. Soft tissues: Soft tissue swelling and edema and probable small hematoma in the lateral foot soft tissues near the fracture. IMPRESSION: Acute fracture of the inferior lateral calcaneus with mild displacement. Dictated by: José Miguel Lozano M.D. on 06/16/2020 at 17:37 Approved by: José Miguel Lozano M.D. on 06/16/2020 at 17:45
[2020-06-16 18:10] VITALS: BP 137/75; PULSE 85; RESP 20; O2SAT 98
[2020-06-16] MEDS: TRAMADOL 50 MG PREPACK 1 BOTTLE MISC (18:39)
--- NOTE | 2020-06-16 18:45 | PC.NURSE ---
Walking boot applied to R foot per MD instruction. Pt has a walker at home she will use.
== END 2020-06-16 18:46 | disposition home or self-care (01) ==
PROVIDERS: Emergency Provider Emergency Medicine; PCP Nurse Practitioner
DX: S92.009A Unspecified fracture of unspecified calcaneus, initial encounter for closed fracture (principal); M25.511 Pain in right shoulder; M79.671 Pain in right foot; M54.9 Dorsalgia, unspecified; W19.XXXA Unspecified fall, initial encounter; E66.01 Morbid (severe) obesity due to excess calories; Z68.42 Body mass index [BMI] 45.0-49.9, adult; I10 Essential (primary) hypertension; E03.9 Hypothyroidism, unspecified; E11.9 Type 2 diabetes mellitus without complications
CPT/HCPCS: 73610; 73630; 73700; 99284

== ENCOUNTER → 2021-01-19 14:52 | Outpatient (CLI) | payer OTHER, SELFPAY ==
[2021-01-19 16:23] LABS: Hemoglobin A1C% w Est Avg Glu 7.6 % (4.0-6.0)
[2021-01-19 16:29] LABS: Alanine Aminotransferase 14 IU/L (<35); Albumin 4.1 g/dL (3.5-5.0); Albumin Globulin Ratio 1.4 (1.0-2.8); Alkaline Phosphatase 70 U/L (38-126); Aspartate Aminotransferase 20 IU/L (14-36); BUN Creatinine Ratio 17.8 (6-22); Bilirubin Total 0.4 mg/dL (0.2-1.3); Blood Urea Nitrogen 13 mg/dL (7-17); Calcium 9.4 mg/dL (8.4-10.2); Carbon Dioxide 22 mmol/L (22-32); Chloride 108 mmol/L (98-107); Cholesterol 161 mg/dL (140-199); Estimated Glomerular Filt Rate > 60.0 mL/min (>60); Globulin 2.9 g/dL (1.7-4.1); Glucose 168 mg/dL (80-110); HDL Cholesterol 41 mg/dL (40-60); HEMOLYSIS < 15 (0-50); LDL Cholesterol Calculated 82 mg/dL (<100); Potassium 4.2 mmol/L (3.4-5.1); Sodium 139 mmol/L (137-145); Triglycerides 189 mg/dL (35-150)
[2021-01-19 17:13] LABS: Thyroid Stimulating Hormone 4.48 uIU/mL (0.47-4.68)
== END ==
PROVIDERS: PCP Nurse Practitioner; Referring Provider Nurse Practitioner; Visit Provider Nurse Practitioner
DX: E11.9 Type 2 diabetes mellitus without complications (principal); Z79.4 Long term (current) use of insulin; E03.9 Hypothyroidism, unspecified; I10 Essential (primary) hypertension; E11.69 Type 2 diabetes mellitus with other specified complication; E78.5 Hyperlipidemia, unspecified
CPT/HCPCS: 36415; 80053; 80061; 83036; 84443

== ENCOUNTER → 2021-02-28 15:13 | Outpatient (CLI) | payer OTHER, SELFPAY ==
[2021-02-28 16:14] LABS: Hematocrit 41.9 % (36-46); Hemoglobin 13.7 g/dL (12.0-16.0); Mean Corpuscular HGB Conc 32.8 % (30-36); Mean Corpuscular Hemoglobin 27.6 PG (26-34); Mean Corpuscular Volume 84.2 fL (80-100); Platelet Count 354 X10^3/uL (150-400); Red Blood Cell Count 4.98 X10^6/uL (4.0-5.2); Red Cell Distribution Width 13.9 % (11.6-14.8)
[2021-02-28 16:48] LABS: Erythrocyte Sedimentation Rate 18 MM/HR (0-20)
[2021-02-28 17:02] LABS: Rheumatoid Factor < 8.6 IU/mL (<12.0)
[2021-03-02 15:36] LABS: ANA Screen, IFA Positive (.)
[2021-03-03 16:57] LABS: Microalbumin Urine Random < 0.6 mg/dL (0-1.6)
[2021-03-03 17:03] LABS: Creatinine Urine Random 53.9 mg/dL
== END ==
PROVIDERS: PCP Nurse Practitioner; Referring Provider Nurse Practitioner; Visit Provider Nurse Practitioner
DX: M25.50 Pain in unspecified joint (principal); E03.9 Hypothyroidism, unspecified; E11.69 Type 2 diabetes mellitus with other specified complication; E78.5 Hyperlipidemia, unspecified; I10 Essential (primary) hypertension; Z79.4 Long term (current) use of insulin
CPT/HCPCS: 36415; 82043; 82570; 85027; 85651; 86038; 86140; 86430

== ENCOUNTER → 2021-06-02 14:38 | Outpatient (CLI) | payer OTHER, SELFPAY ==
[2021-06-02 16:39] LABS: Alanine Aminotransferase 15 IU/L (<35); Albumin 3.6 g/dL (3.5-5.0); Albumin Globulin Ratio 1.3 (1.0-2.8); Alkaline Phosphatase 66 U/L (38-126); Aspartate Aminotransferase 22 IU/L (14-36); BUN Creatinine Ratio 11.5 (6-22); Bilirubin Total 0.6 mg/dL (0.2-1.3); Blood Urea Nitrogen 10 mg/dL (7-17); Calcium 9.1 mg/dL (8.4-10.2); Carbon Dioxide 22 mmol/L (22-32); Chloride 104 mmol/L (98-107); Cholesterol 172 mg/dL (140-199); Estimated Glomerular Filt Rate > 60.0 mL/min (>60); Globulin 2.8 g/dL (1.7-4.1); Glucose 158 mg/dL (80-110); HDL Cholesterol 40 mg/dL (40-60); HEMOLYSIS < 15 (0-50); LDL Cholesterol Calculated 99 mg/dL (<100); Potassium 4.2 mmol/L (3.4-5.1); Sodium 135 mmol/L (137-145); Total Protein 6.4 g/dL (6.3-8.2); Triglycerides 163 mg/dL (35-150)
[2021-06-02 17:42] LABS: Folate 13.5 ng/mL (2.76-20.0); Vitamin B12 231 pg/mL (239-931)
[2021-06-03 20:15] LABS: Centromere B Antibody >8.0 AI (0.0-0.9); Scleroderma 70 Antibody < 0.2 AI (0.0-0.9)
[2021-06-04 15:12] LABS: ANA Screen, IFA Positive (.); Centromere Pattern >1:1280 (.)
[2021-06-06 22:47] LABS: CCP Antibodies IgG/IgA 4 units (0-19)
== END ==
PROVIDERS: PCP Nurse Practitioner; Referring Provider Nurse Practitioner; Visit Provider Nurse Practitioner
DX: E11.69 Type 2 diabetes mellitus with other specified complication (principal); E11.9 Type 2 diabetes mellitus without complications; E78.5 Hyperlipidemia, unspecified; Z79.4 Long term (current) use of insulin; Z79.899 Other long term (current) drug therapy; G62.9 Polyneuropathy, unspecified; I73.00 Raynaud's syndrome without gangrene; M25.50 Pain in unspecified joint; M34.9 Systemic sclerosis, unspecified; M79.7 Fibromyalgia; R06.00 Dyspnea, unspecified; R76.8 Other specified abnormal immunological findings in serum; G89.29 Other chronic pain
CPT/HCPCS: 80053; 80061; 82607; 82746; 83036; 86038; 86200; 86235

== ENCOUNTER 2021-07-17 12:51 | Emergency (ER) | payer OTHER, SELFPAY ==
[2021-07-17 13:06] VITALS: BP 137/82; PULSE 85; RESP 17; TEMP 36.2; O2SAT 99; BMI 50.1
--- NOTE | 2021-07-17 13:35 | DI.RAD.S_ITS ---
PROCEDURE: XR FOOT RT MIN 3V INDICATIONS: swollen right lower extrem w/ recent long distance travel, TECHNIQUE: 3 views of the foot were acquired. COMPARISON: [facility], CR, XR FOOT RT MIN 3V, 06/16/2020, 15:26. FINDINGS: Bones: There is diffuse osteopenia. There is interval healed fractures involving 5th metatarsal neck/distal shaft and lateral aspect of distal calcaneus. No acute fracture or dislocation is seen. Osteoarthritic changes are noted throughout right foot. No suspicious bony lesions. Soft tissues: No tibiotalar joint effusion. Achilles tendon appears normal. IMPRESSION: Healed 5th metatarsal shaft and distal calcaneal fractures. Osteopenia. Right foot osteoarthritis. No gross acute right foot fracture or dislocation. Dictated by: Austin Bowers M.D. on 07/17/2021 at 15:00 Approved by: Austin Bowers M.D. on 07/17/2021 at 15:02
--- NOTE | 2021-07-17 14:29 | DI.US.S_ITS ---
PROCEDURE: US PERIPH VENOUS LOW EXTREM RT INDICATIONS: swollen right lower extrem w/ recent long distance travel, TECHNIQUE: Real-time imaging, as well as color and pulse Doppler interrogation, were performed of the lower extremity deep veins from the inguinal ligament to the popliteal fossa. COMPARISON: None. FINDINGS: The common femoral, femoral and popliteal veins are normally compressible, and free of intraluminal thrombus. Color and pulse Doppler demonstrate normal phasic intraluminal flow. There is normal augmentation response to distal compression maneuver. IMPRESSION: No deep venous thrombosis. Dictated by: Laura Hirsch M.D. on 07/17/2021 at 15:02 Approved by: Laura Hirsch M.D. on 07/17/2021 at 15:02
[2021-07-17 15:17] VITALS: BP 165/67; PULSE 88; O2SAT 93
[2021-07-17 15:19] VITALS: BP 165/67; PULSE 82; O2SAT 97
[2021-07-17] MEDS: ONDANSETRON 4 MG ODT PO (15:28)
[2021-07-17 16:54] VITALS: PULSE 83; RESP 18; O2SAT 98
[2021-07-17 16:55] VITALS: BP 150/67; PULSE 80; O2SAT 98
--- NOTE | 2021-07-17 17:40 | ED_ITS ---
HPI - Extremity Problem <Doreen Edwards PA-C - Last Filed: 07/17/21 17:52> General Chief complaint: Extremity Problem,Nontraumatic Stated complaint: Right foot swollen and red Time Seen by Provider: 07/17/21 16:12 Source: patient Mode of arrival: Wheelchair History of Present Illness HPI Narrative: 65-year-old female with past medical history hypothyroidism, GERD, osteoarthritis, type 2 diabetes, hypertension, hyperlipidemia, right leg paresthesia, depression, morbid obesity presents to the ED with 1 week of right foot redness, swelling. Patient states she was in the [place] last week when she bumped the top of her right foot against the pool surface. Patient states that it is baseline for her to have no feeling in the right leg or foot due to a peroneal nerve injury. Patient denies discharge. Patient denies fever, chills, chest pain, shortness of breath, history of blood clots. Related Data Previous Rx's Medication Instructions Recorded EPINEPHRINE (#EPI EZ PEN) 1 mg IM PRN #1 09/21/10 One Touch test strips #1 ea 12/30/20 amlodipine 5 mg tablet 5 mg PO DAILY #90 tab 12/30/20 atorvastatin 20 mg tablet 20 mg PO DAILY #90 tab 12/30/20 blood-glucose meter #1 each 12/30/20 glimepiride 4 mg tablet 4 mg PO BID #180 tab 12/30/20 glucometer and strips/One touch #1 ea 12/30/20 metformin 1,000 mg tablet 1,000 mg PO BIDCC #180 tab 12/30/20 (Glucophage) one touch Lancets #1 ea 12/30/20 one touch glucometer #1 ea 12/30/20 epinephrine 0.3 mg/0.3 mL 0.3 mg (0.3 mL) IM SEE 01/02/21 injection, auto-injector INSTRUCTIONS #2 ea Contour Blood Sugar Machine #1 ea 02/23/21 ondansetron HCl 4 mg tablet 4 mg PO Q6H PRN #20 tab 03/02/21 (Zofran) venlafaxine 37.5 mg 75 mg PO BEDTIME 90 Days #180 cap 03/16/21 capsule,extended release 24 hr gabapentin 100 mg capsule 100 mg PO TID PRN #270 cap 05/25/21 gabapentin 300 mg capsule 600 mg PO BEDTIME #180 cap 05/25/21 mupirocin 2 % topical ointment 1 applic TOPICAL TID PRN #22 g 05/25/21 pen needle, diabetic 31 gauge x #200 ea 05/25/21/ (Lite Touch Insulin Pen [place]) insulin NPH isoph U-100 human 100 See Rx Instructions .ROUTE 05/26/21 unit/mL (3 mL) subcutaneous pen .COMPLEX #15 ml (Humulin N NPH U-100 Insulin KwikPen) cephalexin 500 mg capsule 500 mg PO QID 10 Days #40 cap 07/17/21 Allergies Allergy/AdvReac Type Severity Reaction Status Date / Time codeine Allergy nasea, Verified 07/19/21 14:22 vomiting erythromycin base Allergy Verified 07/19/21 14:22 nitrofurantoin Allergy Verified 07/19/21 14:22 Penicillins Allergy Verified 07/19/21 14:22 Tetracyclines Allergy Verified 07/19/21 14:22 tramadol AdvReac Intermediate Nausea and Verified 07/19/21 14:22 vomiting Review of Systems <Doreen Edwards PA-C - Last Filed: 07/17/21 17:52> Review of Systems ROS Unobtainable: All systems reviewed & are unremarkable except as noted in HPI and below Constitutional Constitutional: Denies chills, Denies fatigue, Denies fever(s), Denies frequent falls, Denies lethargy and Denies weakness Eyes Eyes: Denies change in vision, Denies eye discharge, Denies irritation and Denies loss of vision ENT Ears, Nose, Mouth, and Throat: Denies change in voice, Denies dizziness, Denies neck pain, Denies sore throat and Denies throat swelling Cardiovascular Cardiovascular: Denies chest pain, Denies irregular heart rhythm, Denies lightheadedness, Denies palpitations, Denies dyspnea, Denies dyspnea on exertion and Denies orthopnea Respiratory Respiratory: Denies cough, Denies dyspnea, Denies dyspnea on exertion and Denies wheezing Gastrointestinal Gastrointestinal: Denies abdominal pain, Denies change in bowel habits, Denies diarrhea, Denies nausea and Denies vomiting Genitourinary Genitourinary: Denies hematuria, Denies flank pain, Denies urinary incontinence and Denies urinary urgency Musculoskeletal Musculoskeletal: Denies back pain, Denies muscle weakness, Denies neck pain, Denies numbness and Denies tingling Integumentary/Breasts Skin/Breast: Denies pruritus, Denies erythema, Denies rash and Denies wounds Comments: Dorsal left foot erythema, swelling. No discharge. Neurologic Neurologic: Denies behavioral changes, Denies confusion, Denies dizziness, Denies frequent falls, Denies loss of vision, Denies numbness, Denies tingling and Denies weakness Psychiatric Psychiatric: Denies anxiety, Denies behavioral changes, Denies confusion, Denies depression, Denies homicidal ideation and Denies suicidal ideation Endocrine Endocrine: Denies fatigue, Denies flushing and Denies palpitations Hematologic/Lymphatic Hematologic/Lymphatic: Denies easy bruising Allergic/Immunologic Allergic/Immunologic: Denies urticaria, Denies throat swelling and Denies wheezing Patient History <Doreen Edwards PA-C - Last Filed: 07/17/21 17:52> Medical History (Updated 07/19/21 @ 14:39 by MAIKEL Asencio) Adjustment disorder with depressed mood Back pain Bilateral hip pain Breast cancer screening Chronic pain Colon cancer screening Depression Diabetes mellitus type 2, insulin dependent Dysphagia FH: JOCELIN-BSO (total abdominal hysterectomy and bilateral salpingo-oophorectomy) Fibromyalgia (~1994) Fibrositis Foot drop GERD (gastroesophageal reflux disease) Hypertension Hypothyroidism Impaired mobility Insomnia Irritable bowel syndrome Osteoarthritis of knee Osteopenia with high risk of fracture Positive ANNEMARIE (antinuclear antibody) Rash (~2017) Right leg paresthesias Skin cancer screening Vitamin D deficiency Surgical History History of tonsillectomy Family History Father No problems noted. Mother No problems noted. Brother No problems noted. Grandfather Lung cancer Grandmother Cancer Social History marital status: pets and animals: Yes education level: other occupational status: employed [employer]: Protestant travel history: other seatbelt use: always water heater temp set < 120 deg: Yes working smoke detector in home: Yes fire extinguisher in home: Yes carbon monox detector in home: Yes firearms in home: No do you feel safe at home: Yes Smoking Status: Never smoker alcohol intake: current substance use type: painkillers during the past year weight has: remained stable well-balanced diet: daily or most days daily servings fruits/ve-1 caffeine: Yes (1-2 drinks per day; rare on soda/pop) eating out: 1-3 times/week Smoking Status: Never smoker alcohol intake frequency: holidays/special occasions only Substance Use Type: does not use Exam <Doreen Edwards PA-C - Last Filed: 07/17/21 17:52> Initial Vital Signs Initial Vital Signs: Vital Signs Temperature 97.2 F L 07/17/21 13:06 Pulse Rate 85 07/17/21 13:06 Respiratory Rate 17 07/17/21 13:06 Blood Pressure 137/82 07/17/21 13:06 Pulse Oximetry 99 07/17/21 13:06 Const General: cooperative, healthy appearing and comfortable Nutritional Appearance: overweight HENMT Head: normal to inspection Eyes General: appearance normal, both eyes and all related structures Neck Neck: normal visual inspection Chest Chest: normal inspection of the chest Resp Effort & Inspection: normal respiratory effort Auscultation: clear to auscultation bilaterally Cardio Rate: regular rate Rhythm: regular rhythm Skin Other: Few abrasions noted to left dorsal foot. Dorsal left foot appears erythematous, warm to touch, mildly swollen. No discharge. Full range of motion. Strength intact. Sensation per baseline per patient. Cap refill less than 2 seconds. Neuro General: patient alert, patient awake and patient oriented x3 Psych Appearance: grossly normal Mental Status: mental status grossly normal <Alexandra York DO - Last Filed: 07/22/21 09:11> Initial Vital Signs Initial Vital Signs: Vital Signs Temperature 97.2 F L 07/17/21 13:06 Pulse Rate 85 07/17/21 13:06 Respiratory Rate 17 07/17/21 13:06 Blood Pressure 137/82 07/17/21 13:06 Pulse Oximetry 99 07/17/21 13:06 Course <KRZYSZTOF Valdes Last Filed: 07/17/21 17:52> Orders Ordered: Discontinued Medications Ondansetron HCl (Ondansetron 4 Mg Odt) 4 mg PO NOW ONE Stop: 07/17/21 15:14 Last Admin: 07/17/21 15:28 Dose: 4 mg Documented by: NATE Vital Signs Vital signs: Vital Signs - 8 hr 07/17/21 13:06 07/17/21 15:17 07/17/21 15:19 Temperature 97.2 F L Pulse Rate 85 88 82 Respiratory Rate 17 Blood Pressure 137/82 165/67 H 165/67 H Pulse Oximetry 99 93 97 07/17/21 16:54 07/17/21 16:55 Temperature Pulse Rate 83 80 Respiratory Rate 18 Blood Pressure 150/67 H Pulse Oximetry 98 98 <Alexandra York DO - Last Filed: 07/22/21 09:11> Orders Ordered: Discontinued Medications Ondansetron HCl (Ondansetron 4 Mg Odt) 4 mg PO NOW ONE Stop: 07/17/21 15:14 Last Admin: 07/17/21 15:28 Dose: 4 mg Documented by: NATE Vital Signs Vital signs: Vital Signs - 8 hr 07/17/21 13:06 07/17/21 15:17 07/17/21 15:19 Temperature 97.2 F L Pulse Rate 85 88 82 Respiratory Rate 17 Blood Pressure 137/82 165/67 H 165/67 H Pulse Oximetry 99 93 97 07/17/21 16:54 07/17/21 16:55 Temperature Pulse Rate 83 80 Respiratory Rate 18 Blood Pressure 150/67 H Pulse Oximetry 98 98 MDM - Extremity (Nontraumatic) <Doreen Edwards PA-C - Last Filed: 07/17/21 17:52> Imaging Data US - DVT: Radiologist's Impression: PROCEDURE:? US PERIPH VENOUS LOW EXTREM RT ? INDICATIONS:? swollen right lower extrem w/ recent long distance travel, ? TECHNIQUE:? Real-time imaging, as well as color and pulse Doppler interrogation, were performed of the lower extremity deep veins from the inguinal ligament to the popliteal fossa.? ? COMPARISON:? None. ? FINDINGS:? The common femoral, femoral and popliteal veins are normally compressible, and free of intraluminal thrombus.? Color and pulse Doppler demonstrate normal phasic intraluminal flow.? There is normal augmentation response to distal compression maneuver. ? ? IMPRESSION:? No deep venous thrombosis. ? ? Dictated by: Laura Hirsch M.D. on 07/17/2021 at 15:02 ? ? Approved by: Laura Hirsch M.D. on 07/17/2021 at 15:02 ? Extremity x-ray #1: Radiologist's Impression: PROCEDURE:? XR FOOT RT MIN 3V ? INDICATIONS:? swollen right lower extrem w/ recent long distance travel, ? TECHNIQUE:? 3 views of the foot were acquired.? ? COMPARISON:? [facility], CR, XR FOOT RT MIN 3V, 06/16/2020, 15:26. ? FINDINGS:? ? Bones:? There is diffuse osteopenia.? There is interval healed fractures involving 5th metatarsal neck/distal shaft and lateral aspect of distal calcaneus.? No acute fracture or dislocation is seen.? Osteoarthritic changes are noted throughout right foot.? No suspicious bony lesions.? ? Soft tissues:? No tibiotalar joint effusion.? Achilles tendon appears normal.? ? ? IMPRESSION:? Healed 5th metatarsal shaft and distal calcaneal fractures.? Osteopenia.? Right foot osteoarthritis.? No gross acute right foot fracture or dislocation. ? ? Dictated by: Austin Bowers M.D. on 07/17/2021 at 15:00 ? ? Approved by: Austin Bowers M.D. on 07/17/2021 at 15:02 ? MDM Narrative Medical decision making narrative: 65-year-old female with past medical history hypothyroidism, GERD, osteoarthritis, type 2 diabetes, hypertension, hyperlipidemia, right leg paresthesia, depression, morbid obesity presents to the ED with 1 week of right foot redness, swelling. Concern for DVT versus fracture/dislocation versus cellulitis. X-ray negative for fracture/dislocation. Ultrasound negative for DVTs. Will treat for cellulitis, prescribed antibiotics. ED return precautions discussed with patient. Patient verbalized understanding. Discharge Plan Departure Patient Disposition: Home Clinical Impression: Cellulitis Instructions: DI for Cellulitis -- Adult Activity Restrictions/Additional Instructions: You were evaluated in the ED today for left foot redness, swelling. Your symptoms are likely due to cellulitis. You have been prescribed a antibiotic. Please complete the course of antibiotics. Return to the ED if you notice worsening of the redness, discharge, fever, chills, nausea, vomiting. Prescriptions: New cephalexin 500 mg capsule 500 mg PO QID 10 Days Qty: 40 0RF No Action EPINEPHRINE (#EPI EZ PEN) 1 mg IM PRN Qty: 1 3RF amlodipine 5 mg tablet 5 mg PO DAILY Qty: 90 1RF atorvastatin 20 mg tablet 20 mg PO DAILY Qty: 90 2RF (DME) blood-glucose meter Kit See Rx Instructions .ROUTE .MEDSUPPLY Qty: 1 0RF Rx Instructions: Test blood sugar once a day. glimepiride 4 mg tablet 4 mg PO BID Qty: 180 1RF (DME) glucometer and strips/One touch Qty: 1 0RF Rx Instructions: Glucometer and strips/One touch metformin [Glucophage] 1,000 mg tablet 1,000 mg PO BIDCC Qty: 180 1RF (DME) one touch glucometer Qty: 1 0RF Rx Instructions: As directed (DME) one touch Lancets Qty: 1 3RF Rx Instructions: Test blood sugars 2-3x/day (DME) One Touch test strips Qty: 1 3RF Rx Instructions: Test FSBG 2-3 times per day epinephrine 0.3 mg/0.3 mL auto-injector 0.3 mg IM SEE INSTRUCTIONS Qty: 2 3RF ondansetron HCl [Zofran] 4 mg tablet 4 mg PO Q6H PRN (Reason: nausea and vomiting) Qty: 20 0RF Humulin N NPH Insulin KwikPen 100 unit/mL (3 mL) insulin pen See Rx Instructions .ROUTE .COMPLEX Qty: 15 3RF Dose Instruction: Inject 19 units under the skin 2 times daily Rx Instructions: Inject 19 units under the skin 2 times daily venlafaxine 37.5 mg capsule,extended release 24hr 75 mg PO BEDTIME 90 Days Qty: 180 3RF Rx Instructions: Take 2 capsules at bedtime daily (DME) Contour Blood Sugar Machine See Rx Instructions .Route .MEDSUPPLY Qty: 1 0RF Rx Instructions: Check blood sugar twice daily, has supplies on hand. mupirocin 2 % ointment 1 applic topical TID PRN (Reason: itching) Qty: 22 3RF Rx Instructions: Apply to affected area three times daily as needed (DME) pen needle, diabetic [Lite Touch Insulin Pen [place]] 31 gauge x 3/16 needle See Rx Instructions .ROUTE .MEDSUPPLY Qty: 200 11RF Rx Instructions: Use to admister insulin. Brand per insurance. gabapentin 300 mg capsule 600 mg PO BEDTIME Qty: 180 3RF Rx Instructions: Take 2 caps (total of 600mg) at bedtime daily for pain gabapentin 100 mg capsule 100 mg PO TID PRN (Reason: Pain) Qty: 270 3RF Rx Instructions: Take 1 capsule up to TID PRN pain Referrals: Emperatriz Mandel ARNP [Primary Care Provider] - <Alexandra York DO - Last Filed: 07/22/21 09:11> Cosign ED Attending Suzanne Attestation: I was immediately available in the department for consultation. Documentation has been reviewed.
== END 2021-07-17 17:25 | disposition home or self-care (01) ==
PROVIDERS: Emergency Provider Student in an Organized Health Care Education/Training Program; PCP Nurse Practitioner
DX: L03.115 Cellulitis of right lower limb (principal); Z88.1 Allergy status to other antibiotic agents; Z88.0 Allergy status to penicillin
CPT/HCPCS: 73630; 93971; 99284

== ENCOUNTER → 2021-10-03 12:00 | Outpatient (CLI) | payer OTHER, SELFPAY ==
[2021-10-03 13:27] LABS: Alanine Aminotransferase 17 IU/L (<35); Albumin 3.8 g/dL (3.5-5.0); Albumin Globulin Ratio 1.2 (1.0-2.8); Alkaline Phosphatase 67 U/L (38-126); Aspartate Aminotransferase 23 IU/L (14-36); BUN Creatinine Ratio 22.2 (6-22); Bilirubin Total 0.3 mg/dL (0.2-1.3); Blood Urea Nitrogen 18 mg/dL (7-17); Calcium 8.9 mg/dL (8.4-10.2); Carbon Dioxide 25 mmol/L (22-32); Chloride 104 mmol/L (98-107); Cholesterol 180 mg/dL (140-199); Estimated Glomerular Filt Rate > 60 mL/min (>60); Globulin 3.2 g/dL (1.7-4.1); Glucose 267 mg/dL (80-110); HDL Cholesterol 40 mg/dL (40-60); HEMOLYSIS < 15 (0-50); LDL Cholesterol Calculated 92 mg/dL (<100); Potassium 4.4 mmol/L (3.4-5.1); Sodium 136 mmol/L (137-145); Triglycerides 238 mg/dL (35-150)
[2021-10-03 14:02] LABS: Free T3, Triiodothyronine Free 3.59 pg/mL (2.77-5.27); Free T4, Direct Thyroxine 0.79 ng/dL (0.78-2.19)
[2021-10-03 14:07] LABS: Hemoglobin A1C% w Est Avg Glu 7.8 % (4.0-6.0)
[2021-10-03 14:16] LABS: Thyroid Stimulating Hormone 4.23 uIU/mL (0.47-4.68)
== END ==
PROVIDERS: PCP Nurse Practitioner; Referring Provider Nurse Practitioner; Visit Provider Nurse Practitioner
DX: E11.69 Type 2 diabetes mellitus with other specified complication (principal); E11.9 Type 2 diabetes mellitus without complications; E03.9 Hypothyroidism, unspecified; E78.5 Hyperlipidemia, unspecified; G47.00 Insomnia, unspecified; I10 Essential (primary) hypertension; Z79.4 Long term (current) use of insulin; Z79.899 Other long term (current) drug therapy
CPT/HCPCS: 36415; 80053; 80061; 83036; 84439; 84443; 84481

== ENCOUNTER → 2022-02-09 14:44 | Outpatient (CLI) | payer OTHER, SELFPAY ==
[2022-02-09 17:13] LABS: Hemoglobin A1C% w Est Avg Glu 6.9 % (4.0-6.0)
[2022-02-09 17:36] LABS: Alanine Aminotransferase 17 IU/L (<35); Albumin 3.7 g/dL (3.5-5.0); Albumin Globulin Ratio 1.2 (1.0-2.8); Alkaline Phosphatase 69 U/L (38-126); Aspartate Aminotransferase 21 IU/L (14-36); BUN Creatinine Ratio 14.4 (6-22); Bilirubin Total 0.4 mg/dL (0.2-1.3); Blood Urea Nitrogen 13 mg/dL (7-17); Carbon Dioxide 20 mmol/L (22-32); Chloride 104 mmol/L (98-107); Cholesterol 221 mg/dL (140-199); Estimated Glomerular Filt Rate > 60 mL/min (>60); Globulin 3.1 g/dL (1.7-4.1); Glucose 302 mg/dL (80-110); HDL Cholesterol 38 mg/dL (40-60); HEMOLYSIS < 15 (0-50); LDL Cholesterol Calculated 144 mg/dL (<100); Sodium 137 mmol/L (137-145); Total Protein 6.8 g/dL (6.3-8.2); Triglycerides 197 mg/dL (35-150)
[2022-02-09 17:43] LABS: Microalbumin Urine Random < 0.6 mg/dL (0-1.6)
== END ==
PROVIDERS: PCP Nurse Practitioner; Referring Provider Nurse Practitioner; Visit Provider Nurse Practitioner
DX: M85.88 Other specified disorders of bone density and structure, other site (principal); Z78.0 Asymptomatic menopausal state; E03.9 Hypothyroidism, unspecified; E11.69 Type 2 diabetes mellitus with other specified complication; E66.9 Obesity, unspecified; E78.5 Hyperlipidemia, unspecified; I10 Essential (primary) hypertension; G47.00 Insomnia, unspecified; Z79.4 Long term (current) use of insulin; Z79.899 Other long term (current) drug therapy; Z90.710 Acquired absence of both cervix and uterus
CPT/HCPCS: 36415; 77080; 80053; 80061; 82043; 82570; 83036

== ENCOUNTER → 2022-10-18 13:00 | Outpatient (CLI) | payer OTHER, SELFPAY ==
[2022-10-18 13:53] LABS: Alanine Aminotransferase 16 IU/L (<35); Albumin 3.7 g/dL (3.5-5.0); Albumin Globulin Ratio 1.2 (1.0-2.8); Alkaline Phosphatase 70 U/L (38-126); Aspartate Aminotransferase 19 IU/L (14-36); BUN Creatinine Ratio 15.3 (6-22); Bilirubin Total 0.5 mg/dL (0.2-1.3); Blood Urea Nitrogen 13 mg/dL (7-17); Calcium 8.7 mg/dL (8.4-10.2); Carbon Dioxide 19 mmol/L (22-32); Chloride 105 mmol/L (98-107); Cholesterol 151 mg/dL (140-199); Estimated Glomerular Filt Rate > 60 mL/min (>60); Globulin 3.1 g/dL (1.7-4.1); Glucose 178 mg/dL (80-110); HDL Cholesterol 38 mg/dL (40-60); HEMOLYSIS < 15 (0-50); LDL Cholesterol Calculated 81 mg/dL (<100); Sodium 135 mmol/L (137-145); Total Protein 6.8 g/dL (6.3-8.2); Triglycerides 160 mg/dL (35-150)
[2022-10-18 14:10] LABS: Free T3, Triiodothyronine Free 3.98 pg/mL (2.77-5.27); Free T4, Direct Thyroxine 0.87 ng/dL (0.78-2.19)
[2022-10-18 14:23] LABS: Thyroid Stimulating Hormone 6.18 uIU/mL (0.47-4.68)
[2022-10-18 16:29] LABS: Hep C Virus Ab w/Reflex Quant NEGATIVE s/c (NEGATIVE)
[2022-10-19 04:38] LABS: Labcorp Hemoglobin (Hb) A1c 8.1 % (4.8-5.6)
== END ==
PROVIDERS: PCP Nurse Practitioner; Referring Provider Nurse Practitioner; Visit Provider Nurse Practitioner
DX: E78.5 Hyperlipidemia, unspecified (principal); E11.69 Type 2 diabetes mellitus with other specified complication; E11.9 Type 2 diabetes mellitus without complications; Z79.4 Long term (current) use of insulin; E03.9 Hypothyroidism, unspecified; I10 Essential (primary) hypertension; E66.9 Obesity, unspecified; Z11.59 Encounter for screening for other viral diseases
CPT/HCPCS: 36415; 80053; 80061; 83036; 84439; 84443; 84481; 86803

== ENCOUNTER → 2023-01-16 13:46 | Outpatient (CLI) | payer MEDICARE, SELFPAY ==
[2023-01-16 15:21] LABS: Hemoglobin A1C% w Est Avg Glu 7.1 % (4.0-6.0)
[2023-01-16 15:36] LABS: Alanine Aminotransferase 14 IU/L (<35); Albumin 3.8 g/dL (3.5-5.0); Albumin Globulin Ratio 1.3 (1.0-2.8); Alkaline Phosphatase 64 U/L (38-126); Aspartate Aminotransferase 24 IU/L (14-36); BUN Creatinine Ratio 19.7 (6-22); Bilirubin Total 0.6 mg/dL (0.2-1.3); Blood Urea Nitrogen 15 mg/dL (7-17); Calcium 9.4 mg/dL (8.4-10.2); Carbon Dioxide 21 mmol/L (22-32); Chloride 105 mmol/L (98-107); Estimated Glomerular Filt Rate > 60 mL/min (>60); Glucose 123 mg/dL (80-110); HEMOLYSIS 50 (0-50); Potassium 4.5 mmol/L (3.4-5.1); Sodium 136 mmol/L (137-145); Total Protein 6.8 g/dL (6.3-8.2)
[2023-01-16 16:31] LABS: Microalbumin Urine Random < 0.6 mg/dL (0-1.6)
== END ==
PROVIDERS: PCP Nurse Practitioner; Referring Provider Nurse Practitioner; Visit Provider Nurse Practitioner
DX: I10 Essential (primary) hypertension (principal); E11.9 Type 2 diabetes mellitus without complications; R73.09 Other abnormal glucose; Z79.4 Long term (current) use of insulin
CPT/HCPCS: 36415; 80053; 82043; 82570; 83036; 93005

== ENCOUNTER → 2023-03-22 14:32 | Outpatient (CLI) | payer MEDICARE, SELFPAY ==
--- NOTE | 2023-03-22 14:35 | DI.ECHO.S_ITS ---
[facility]---------+ [facility] +---------+ : : [address] : : : : [id number] : : : : Phone: [phone]+ Echocardiogram Report + + :Name: JARETT PINTO Study Date: 03/22/2023 Height: 67 in : :[facility] ReadingLocation: Weight: 330 lb : : Gender: Female BSA: 2.5 m2 : :: 1955 Age: 67 yrs BP: 152/77 mmHg: :Reason For Study: Hypertension : :Ordering Physician: MARTHA, : :LATONYA Performed By: Michelle Sánchez : :Referring: LATONYA THOMAS : + + Interpretation Summary The ejection fraction is estimated to be 60-65%. The right ventricular systolic function is normal. Pulmonary artery pressures cannot be estimated because of the lack of a measurable TR jet velocity. No significant valvular abnormality. The study quality was technically difficult. Procedure: A two-dimensional transthoracic echocardiogram with color flow and Doppler was performed. The study quality was technically difficult. There is no prior echocardiogram noted for this patient. A contrast injection of Definity was performed to improve assessment of LV function. Left Ventricle: The left ventricle is normal in size. The ejection fraction is estimated to be 60-65%. Diastolic parameters suggest a relaxation abnormality of the left ventricle, consistent with probable normal filling pressures. Right Ventricle: The right ventricle is not well visualized. The right ventricular systolic function is normal. Atria: The left atrial size is normal. Right atrium not well visualized. The interatrial septum is not well visualized. There is no Doppler evidence for an interatrial shunt. Mitral Valve: The mitral valve is not well visualized. The mitral valve leaflets are slightly calcified. There is no mitral valve stenosis. There is no mitral regurgitation noted. Aortic Valve: The aortic valve is not well visualized. There is mild aortic valve sclerosis. There is no aortic valve stenosis. No aortic regurgitation is present. Tricuspid Valve: The tricuspid valve is not well visualized. There is no tricuspid stenosis. There is trace tricuspid regurgitation. Pulmonary artery pressures cannot be estimated because of the lack of a measurable TR jet velocity. Pulmonic Valve: The pulmonic valve is not well visualized. There is no pulmonic valvular stenosis. There is trace pulmonic regurgitation. Great Vessels: The aortic root is normal size. The ascending aorta is normal in size. The pulmonary artery is normal size. The IVC is of normal diameter and collapses greater than 50% with a sniff. This suggests a low right atrial pressure of 3 mm Hg. Pericardium/ Pleura There is no pericardial effusion. There is no pleural effusion. MMode/2D Measurements & Calculations LVOT diam: 1.8 cm LA A2 area: 16.0 cm2 Ao root diam: 3.1 cm LA A4 area: 19.4 cm2 asc Aorta Diam: 3.3 cm LA length (vol): 5.3 cm LA vol: 49.9 ml LA vol index: 19.9 ml/m2 LVLs ap4: 6.1 cm LVLd ap2: 7.0 cm LVLs ap2: 5.8 cm TAPSE_phl: 2.1 cm Doppler Measurements & Calculations Ao V2 max: 159.3 cm/sec LVOT Max Horace: 108.5 cm/sec Ao V2 mean: 108.5 cm/sec LV V1 max P.7 mmHg Ao max P.0 mmHg LV V1 VTI: 21.0 cm Ao mean P.5 mmHg MOLLY(I,D): 1.9 cm2 Ao V2 VTI: 28.0 cm MOLLY(V,D): 1.7 cm2 sev ratio: 0.75 MOLLY indexed to BSA (cm^2/m^2): 0.76 MV E max horace: 101.0 cm/sec PA V2 max: 103.0 cm/sec MV A max horace: 105.0 cm/sec PA V2 mean: 70.0 cm/sec MV E/A: 0.96 PA mean P.0 mmHg Med Peak E' Horace: 9.8 cm/sec E/E' med: 10.3 Lat Peak E' Horace: 9.3 cm/sec E/E' lat: 10.8 E/e' average: 10.6 MV dec time: 0.24 sec SV(LVOT): 53.3 ml AV VR_phl: 0.69 MOLLY(VTI)/BSA_phl: 0.76 Reading Physician:DOMINGO
== END ==
LOC: ECHO 14:35
PROVIDERS: PCP Nurse Practitioner; Referring Provider Nurse Practitioner; Visit Provider Nurse Practitioner
DX: I35.8 Other nonrheumatic aortic valve disorders (principal); I10 Essential (primary) hypertension
CPT/HCPCS: 93306; Q9957

== ENCOUNTER → 2023-10-16 13:04 | Outpatient (CLI) | payer MEDICARE, SELFPAY ==
[2023-10-16 14:08] LABS: Add Manual Diff / Slide Review NO; Basophils Absolute Auto 0 /uL (0-100); Basophils Percent Auto 0.4 % (0-2); Eosinophils Absolute Auto 500 /uL (0-450); Eosinophils Percent Auto 5.1 % (2-4); Hematocrit 40.7 % (36-46); Hemoglobin 13.6 g/dL (12.0-16.0); Lymphocytes Absolute Auto 1400 /uL (1100-4500); Lymphocytes Percent Auto 15.5 % (25-40); Mean Corpuscular HGB Conc 33.4 % (30-36); Mean Corpuscular Hemoglobin 28.2 PG (26-34); Mean Corpuscular Volume 84.5 fL (80-100); Monocytes Absolute Auto 400 /uL (0-900); Monocytes Percent Auto 4.3 % (3-14); Neutrophils Absolute Auto 6800 /uL (1500-7000); Neutrophils Percent Auto 74.7 % (50-75); Platelet Count 363 X10^3/uL (150-400); Red Blood Cell Count 4.82 X10^6/uL (4.0-5.2); Red Cell Distribution Width 13.9 % (11.6-14.8); White Blood Cell Count 9.1 X10^3/uL (4.5-11.0)
[2023-10-16 14:20] LABS: Hemoglobin A1C% w Est Avg Glu 7.8 % (4.0-6.0)
[2023-10-16 14:41] LABS: Alanine Aminotransferase 11 IU/L (<35); Albumin 3.9 g/dL (3.5-5.0); Albumin Globulin Ratio 1.4 (1.0-2.8); Alkaline Phosphatase 84 U/L (38-126); Aspartate Aminotransferase 18 IU/L (14-36); BUN Creatinine Ratio 16.9 (6-22); Bilirubin Total 0.7 mg/dL (0.2-1.3); Blood Urea Nitrogen 12 mg/dL (7-17); Calcium 9.2 mg/dL (8.4-10.2); Carbon Dioxide 23 mmol/L (22-32); Chloride 107 mmol/L (98-107); Cholesterol 137 mg/dL (140-199); Estimated Glomerular Filt Rate > 60 mL/min (>60); Globulin 2.8 g/dL (1.7-4.1); Glucose 179 mg/dL (80-110); HEMOLYSIS < 15 (0-50); Potassium 4.2 mmol/L (3.4-5.1); Sodium 138 mmol/L (137-145); Total Protein 6.7 g/dL (6.3-8.2); Triglycerides 156 mg/dL (35-150)
[2023-10-16 14:48] LABS: Free T3, Triiodothyronine Free 2.92 pg/mL (2.77-5.27); Free T4, Direct Thyroxine 0.76 ng/dL (0.78-2.19)
[2023-10-16 15:02] LABS: Thyroid Stimulating Hormone 5.14 uIU/mL (0.47-4.68)
[2023-10-16 17:33] LABS: HDL Cholesterol 40 mg/dL (40-60); LDL Cholesterol Calculated 66 mg/dL (<100)
== END ==
PROVIDERS: PCP Nurse Practitioner; Referring Provider Nurse Practitioner; Visit Provider Nurse Practitioner
DX: E11.9 Type 2 diabetes mellitus without complications (principal); E03.9 Hypothyroidism, unspecified; I10 Essential (primary) hypertension; E11.69 Type 2 diabetes mellitus with other specified complication; E78.5 Hyperlipidemia, unspecified; E66.01 Morbid (severe) obesity due to excess calories; Z68.42 Body mass index [BMI] 45.0-49.9, adult; Z79.4 Long term (current) use of insulin
CPT/HCPCS: 36415; 80053; 80061; 83036; 84439; 84443; 84481; 85025

== ENCOUNTER → 2024-01-27 13:38 | Outpatient (CLI) | payer MEDICARE, SELFPAY ==
[2024-01-27 15:35] LABS: Alanine Aminotransferase 11 IU/L (<35); Albumin 3.4 g/dL (3.5-5.0); Albumin Globulin Ratio 1.2 (1.0-2.8); Alkaline Phosphatase 76 U/L (38-126); Aspartate Aminotransferase 17 IU/L (14-36); BUN Creatinine Ratio 20.3 (6-22); Bilirubin Total 0.5 mg/dL (0.2-1.3); Blood Urea Nitrogen 15 mg/dL (7-17); Carbon Dioxide 21 mmol/L (22-32); Chloride 106 mmol/L (98-107); Estimated Glomerular Filt Rate > 60 mL/min (>60); Globulin 2.9 g/dL (1.7-4.1); Glucose 156 mg/dL (80-110); HEMOLYSIS < 15 (0-50); Potassium 4.6 mmol/L (3.4-5.1); Sodium 135 mmol/L (137-145); Total Protein 6.3 g/dL (6.3-8.2)
== END ==
LOC: LAB 13:39
PROVIDERS: PCP Nurse Practitioner; Referring Provider Nurse Practitioner; Visit Provider Nurse Practitioner
DX: E11.69 Type 2 diabetes mellitus with other specified complication (principal); E78.5 Hyperlipidemia, unspecified; E66.9 Obesity, unspecified; Z79.899 Other long term (current) drug therapy
CPT/HCPCS: 36415; 80053; 83036

== ENCOUNTER → 2024-06-17 13:59 | Outpatient (CLI) | payer MEDICARE, SELFPAY ==
--- NOTE | 2024-06-17 14:00 | DI.RAD.S_ITS ---
PROCEDURE: XR CHEST 2V INDICATIONS: chronic cough x 1 year TECHNIQUE: 2 views of the chest were acquired. COMPARISON: None. FINDINGS: Heart, mediastinum and pulmonary vascular: Heart is normal in size and configuration. Mediastinum is unremarkable. Pulmonary vascular is normal. Lungs: Increased density in the medial right upper lobe is likely chondral calcification in the anterior 2nd rib. Pleural spaces: Normal-no effusions or pneumothorax. Bones and soft tissues: Normal IMPRESSION: Focal increased density in the medial right upper lobe is likely chondral calcification in the anterior 2nd rib. Suggest patient return for lordotic and reversed lordotic views coned to the upper lobe regions regions to ensure the absence of a underlying nodule or infiltrate Dictated by: Angel Bolivar M.D. on 06/18/2024 at 10:44 Approved by: Angel Bolivar M.D. on 06/18/2024 at 10:47
== END ==
PROVIDERS: PCP Family Medicine; Referring Provider Physician Assistant; Visit Provider Physician Assistant
DX: R05.3 Chronic cough (principal)
CPT/HCPCS: 71046

== ENCOUNTER → 2024-06-19 14:06 | Outpatient (CLI) | payer MEDICARE, SELFPAY ==
--- NOTE | 2024-06-19 14:07 | DI.RAD.S_ITS ---
PROCEDURE: XR CHEST 3V INDICATIONS: f/u abnormal xray, see previous TECHNIQUE: 2 views of the chest were acquired. COMPARISON: [facility], CR, XR CHEST 2V, 06/17/2024, 14:01. FINDINGS: Surgical changes and devices: None. Lungs and pleura: Lungs are clear. No pleural effusions or pneumothorax. Mediastinum: Mediastinal contours are normal. Heart size is normal. Bones and chest wall: No suspicious bony abnormalities. Soft tissues appear unremarkable. IMPRESSION: No acute cardiopulmonary abnormality is seen. No identified evidence of pulmonary mass. The area of prior plain film concern from 2 days ago appears to have represented a mildly prominent degree of calcification at the right costosternal junction. Dictated by: Tye Kwong M.D. on 06/19/2024 at 16:19 Approved by: Tye Kwong M.D. on 06/19/2024 at 16:21
== END ==
PROVIDERS: PCP Family Medicine; Referring Provider Physician Assistant; Visit Provider Physician Assistant
DX: R05.9 Cough, unspecified (principal); R91.8 Other nonspecific abnormal finding of lung field
CPT/HCPCS: 71047

== ENCOUNTER → 2024-07-02 12:57 | Outpatient (CLI) | payer MEDICARE, SELFPAY ==
[2024-07-02 13:38] LABS: Hemoglobin A1C% w Est Avg Glu 6.9 % (4.0-6.0)
[2024-07-02 13:40] LABS: Alanine Aminotransferase 16 IU/L (<35); Albumin 3.8 g/dL (3.5-5.0); Albumin Globulin Ratio 1.4 (1.0-2.8); Alkaline Phosphatase 69 U/L (38-126); Aspartate Aminotransferase 24 IU/L (14-36); BUN Creatinine Ratio 14.6 (6-22); Bilirubin Total 0.6 mg/dL (0.2-1.3); Blood Urea Nitrogen 12 mg/dL (7-17); Carbon Dioxide 23 mmol/L (22-32); Chloride 105 mmol/L (98-107); Estimated Glomerular Filt Rate > 60 mL/min (>60); Globulin 2.7 g/dL (1.7-4.1); Glucose 164 mg/dL (80-110); HEMOLYSIS 37 (0-50); Potassium 4.4 mmol/L (3.4-5.1); Sodium 138 mmol/L (137-145); Total Protein 6.5 g/dL (6.3-8.2)
[2024-07-02 14:06] LABS: TSH w/ Reflex to FT4 4.54 uIU/mL (0.47-4.68)
== END ==
LOC: LAB 12:58
PROVIDERS: Nurse Practitioner; PCP Family Medicine; Referring Provider Family Medicine; Visit Provider Family Medicine
DX: E11.9 Type 2 diabetes mellitus without complications (principal); E03.9 Hypothyroidism, unspecified; Z79.4 Long term (current) use of insulin
CPT/HCPCS: 36415; 80053; 83036; 84443

== ENCOUNTER → 2025-02-05 14:38 | Outpatient (CLI) | payer MEDICARE, SELFPAY ==
[2025-02-05 14:53] LABS: Add Manual Diff / Slide Review NO; Hematocrit 40.8 % (36-46); Hemoglobin 13.9 g/dL (12.0-16.0); Lymphocytes Absolute Auto 1100 /uL (1100-4500); Mean Corpuscular HGB Conc 34.2 % (30-36); Mean Corpuscular Hemoglobin 28.4 PG (26-34); Mean Corpuscular Volume 83.1 fL (80-100); Platelet Count 354 X10^3/uL (150-400)
[2025-02-05 15:19] LABS: Alanine Aminotransferase 15 IU/L (<35); Albumin 3.8 g/dL (3.5-5.0); Albumin Globulin Ratio 1.3 (1.0-2.8); Alkaline Phosphatase 70 U/L (38-126); Blood Urea Nitrogen 12 mg/dL (7-17); Calcium 8.9 mg/dL (8.4-10.2); Carbon Dioxide 20 mmol/L (22-32); Chloride 103 mmol/L (98-107); Cholesterol 139 mg/dL (140-199); Estimated Glomerular Filt Rate > 60 mL/min (>60); Globulin 2.9 g/dL (1.7-4.1); Glucose 275 mg/dL (70-99); HDL Cholesterol 45 mg/dL (40-60); HEMOLYSIS 27 (0-50); Potassium 4.5 mmol/L (3.4-5.1); Sodium 134 mmol/L (137-145); Total Protein 6.7 g/dL (6.3-8.2); Triglycerides 174 mg/dL (35-150)
[2025-02-05 15:23] LABS: Hemoglobin A1C% w Est Avg Glu 7.1 % (4.0-6.0)
[2025-02-05 15:50] LABS: TSH w/ Reflex to FT4 3.56 uIU/mL (0.47-4.68)
== END ==
LOC: LAB 14:39
PROVIDERS: PCP Family Medicine; Referring Provider Family Medicine; Visit Provider Family Medicine
DX: E11.9 Type 2 diabetes mellitus without complications (principal); E78.5 Hyperlipidemia, unspecified; Z79.4 Long term (current) use of insulin; E11.69 Type 2 diabetes mellitus with other specified complication; E66.9 Obesity, unspecified
CPT/HCPCS: 36415; 80053; 80061; 83036; 84443; 85025